=== PATIENT | male | born 1950 | race Caucasian/White ===

== ENCOUNTER 2025-06-12 08:19 | Outpatient (CLI) | payer MEDICARE, SELFPAY ==
[2025-06-12 16:03] LABS: C. difficile PCR (HMH) Negative (Neagtive)
== END 2025-06-12 23:59 | disposition home or self-care (01) ==
PROVIDERS: PCP Family Medicine; Visit Provider Family Medicine
DX: R19.7 Diarrhea, unspecified (principal)
CPT/HCPCS: 87045; 87493

== ENCOUNTER 2025-07-22 20:43 | Inpatient (IN) | payer MEDICARE, SELFPAY ==
[2025-07-22 21:23] VITALS: BP 148/90; PULSE 107; RESP 20; TEMP 40.4; O2SAT 95; BMI 17.3
--- NOTE | 2025-07-22 21:24 | XR_ITS ---
PROCEDURE INFORMATION: Exam: XR Chest Exam date and time: 07/22/2025 8:55 PM Age: 75 years old Clinical indication: Other: AMS TECHNIQUE: Imaging protocol: Radiologic exam of the chest. Views: 1 view. COMPARISON: No relevant prior studies available. FINDINGS: Lungs: Pleuroparenchymal scarring of the lung bases with subsegmental atelectasis is present without consolidations or pleural effusions that project above the diaphragm. Pleural spaces: Unremarkable. No pleural effusion. No pneumothorax. Heart/Mediastinum: Unremarkable. No cardiomegaly. Bones/joints: Unremarkable. IMPRESSION: Pleuroparenchymal scarring of the lung bases with subsegmental atelectasis is present without consolidations or pleural effusions that project above the diaphragm.
[2025-07-22 21:33] LABS: Microscopic, Urine URINE MICROSCOPIC (MICROSCOPIC)
[2025-07-22 21:35] LABS: Hematocrit 32.4 % (42.0-52.0); Hemoglobin 10.6 g/dL (14.1-18.0); Immature Granulocytes % 0.4 %; Mean Corpuscular HGB Conc 32.7 g/dL (31.8-35.4); Mean Corpuscular Hemoglobin 28.0 pg (27.0-31.2); Mean Corpuscular Volume 85.5 fl (80-94); Nucleated Red Blood Cells % 0 %; Platelet Count 298 K/mm3 (142-424); Red Blood Count 3.79 M/mm3 (4.60-6.20); Red Cell Distribution Width-SD 56.6 fL; White Blood Count 10.9 K/mm3 (4.8-10.8)
[2025-07-22 21:37] LABS: Adenovirus,PCR Not Detected (NotDetected); Chlamydophila Pneumoniae, PCR Not Detected (NotDetected); Coronavirus 19, PCR Not Detected (NotDetected); Coronovirus HKU1,PCR Not Detected (NotDetected); Influenza A, PCR Not Detected (NotDetected); Influenza AH1, 2009 Not Detected (NotDetected); Influenza AH1, PCR Not Detected (NotDetected); Influenza AH3,PCR Not Detected (NotDetected); Influenza B, PCR Not Detected (NotDetected); Mycoplasma Pneumoniae, PCR Not Detected (NotDetected); Parainfluenza 1, PCR Not Detected (NotDetected); Parainfluenza 2, PCR Not Detected (NotDetected); Parainfluenza 3, PCR Not Detected (NotDetected); Parainfluenza 4, PCR Not Detected (NotDetected)
--- NOTE | 2025-07-22 21:37 | HMH.EDGENADL ---
Discharge Plan Disposition Patient Disposition: Home, Self-Care Condition: Good Clinical Impressions Clinical Impression: UTI (urinary tract infection), Fever Discharge ED Provider: Lluvia Castaneda General Adult HPI General Chief complaint: Altered Mental Status Stated complaint: AMS Time Seen by Provider: 07/22/25 21:37 Mode of Arrival: EMS Source of Information: Patient and EMS Description of Symptoms (Recalled from ER Triage Doc. by RN): PT brought to ED vis [facility] for evaluation of Fever and AMS. PT stated his called EMS for help to change his dirty depends. History of Present Illness HPI narrative: Patient is a 75-year-old gentleman with a past medical history of CP who is taking care of by his at home who presents to the emergency department with fever and altered mental status. Per EMS, they have been to the home multiple times over this past year patient usually goes to [facility]. EMS states that they did file an APS report given concern for 's ability to take care of him at home. Patient does have frequent UTIs. Other history was unable to be obtained given patient has not been here to this emergency department. Patient denies any complaints. Patient is able to answer questions but is very hard of hearing. Patient denies any chest pain abdominal pain abdominal pain nausea vomiting or diarrhea. Related Data Home Medications ?Medication ?Instructions ?Recorded ?Confirmed ropinirole 2 mg tablet 2 mg PO BID 05/12/25 07/23/25 acetaminophen 500 mg capsule 500 mg PO Q6H PRN Pain 07/15/25 07/23/25 diclofenac sodium 75 mg 75 mg PO BID 07/23/25 07/23/25 tablet,delayed release Allergies Allergy/AdvReac Type Severity Reaction Status Date / Time lactose Allergy Intermediate Verified 07/15/25 11:37 gluten Allergy Mild Verified 07/15/25 11:37 FOR[facility]LY [facility], [facility] PFS Disclaimer: The information contained in this section may have been updated after the patient was seen, as this information can be updated by other users. Medical History Hearing loss Restlessness Idiopathic scoliosis Gastric ulcer Cognitive communication deficit Insomnia Type 2 diabetes mellitus CKD (chronic kidney disease) Abnormal gait Spastic diplegic cerebral palsy Anxiety Depressed Vitamin D deficiency Protein calorie malnutrition Hx: UTI (urinary tract infection) Surgical History History of craniectomy H/O vasectomy History of Billroth II operation H/O lumbosacral spine surgery History of surgical procedure on thoracic spine Family History (Updated 07/23/25 @ 02:02 by Cynthia Hensley APRN) Other Cancer Social History Smoking Status: Never smoker alcohol intake: never current occupational status: disabled Travel in the last 8 weeks?: None Have you lived/traveled outside US in past 30 days?: No Contact w/someone who lives/traveled outside US past 30 days?: No Exposure to someone with infectious disease in past 14 days?: No Do you have a fever (greater than 100.4 F or 38 C)?: No Have you tested positive for COVID-19?: No Exposed to someone with COVID-19 in past 14 days?: No Do you have a sore throat?: No Do you have a cough?: No Do you have any weakness?: No Do you have any diarrhea?: No Are you experiencing any unusual bleeding?: No Do you have any muscle aches/pain?: No Do you have any abdominal pain?: No Are you experiencing loss of taste or smell?: No Other Medical History Have you received the Pneumonia Vaccine: No (unknown) ROS Obtained: Yes All systems reviewed & no additional complaints except as documented and Yes Systems reviewed as appropriate & no additional complaints except as documented Physical Exam General General appearance: alert and in no apparent distress Head Head exam: atraumatic, normocephalic and normal inspection Eye Eye exam: Present normal appearance, PERRL and EOMI; Absent scleral icterus ENT ENT exam: Present normal exam and normal external ear exam Neck Neck exam: Present normal inspection and full ROM Chest Chest inspection: Present normal inspection and symmetric chest wall rise Respiratory Respiratory exam: Present normal lung sounds bilaterally; Absent respiratory distress or wheezes Cardiovascular Cardiovascular exam: Present regular rate, normal rhythm and normal heart sounds Abdominal Exam Abdominal exam: Present soft and distention; Absent tenderness, guarding or rebound Extremities Exam Extremities exam: Present normal inspection and full ROM Back Exam Back exam: Present normal inspection and full ROM Neurological Exam Neurological exam: Present alert and oriented X3 Psychiatric Psychiatric exam: Present normal affect and normal mood Skin Skin exam: Present warm and dry Medical Decision Making Medical Records Medical records reviewed: Yes I reviewed the patient's medical records. Screening: Per USPSTF and CDC recommendations, given the prevalence of disease in our region, it is our hospital?s policy to screen for HIV and viral Hepatitis for all patients aged 18 and over and those with ongoing risk factors. Filipe Inquiry Pt receiving controlled substance: No Vital Signs: 07/22/25 21:23 07/22/25 22:40 07/22/25 23:14 Temperature 104.7 F H 102.7 F H Temperature Source Rectal Rectal Pulse Rate 98 H 103 H Pulse Rate [Left] 107 H Respiratory Rate 20 16 Blood Pressure 135/93 H 122/72 Blood Pressure [Right Arm] 148/90 H Blood Pressure Mean [Right Arm] 109 02 Sat by Pulse Oximetry 95 94 L 95 Oxygen Delivery Method Room Air Room Air Room Air 07/22/25 23:26 Temperature 102.7 F H Temperature Source Rectal Pulse Rate 103 H Pulse Rate [Left] Respiratory Rate 20 Blood Pressure 122/72 Blood Pressure [Right Arm] Blood Pressure Mean [Right Arm] 02 Sat by Pulse Oximetry Oxygen Delivery Method Room Air Lab Data Lab results reviewed: Yes I reviewed the patient's lab results. Lab Results 07/22/25 21:00: Urine Color Yellow, Urine Appearance Turbid, Urine pH 6.5, Ur Specific [place] 1.020, Urine Protein 2+ A, Urine Glucose (UA) Negative, Urine Ketones Negative, Urine Blood 3+ A, Urine Nitrate Negative, Urine Bilirubin Negative, Urine Urobilinogen 0.2, Ur Leukocyte Esterase 3+ A, Urine RBC 10-20, Urine WBC 50-100, Ur Squamous Epith Cells Occasional, Urine Bacteria 1+ 07/22/25 21:22: Chlamy pneumoniae PCR Not detected, Adenovirus (PCR) Not detected, B. pertussis DNA (PCR) Not detected, Coronavirus OC43 (PCR) Not detected, Coronavirus HKU1 (PCR) Not detected, Coronavirus 229E (PCR) Not detected, SARS-CoV-2 (PCR) Not detected, Coronavirus NL63 (PCR) Not detected, Human Metapneumovir PCR Not detected, Influenza A (H1) PCR Not detected, Influ A (H1N1/09) PCR Not detected, Influenza A (H3) PCR Not detected, Influenza Type A (PCR) Not detected, Influenza Type B (PCR) Not detected, M. pneumoniae (PCR) Not detected, Parainfluenza 1 (PCR) Not detected, Parainfluenza 2 (PCR) Not detected, Parainfluenza 3 (PCR) Not detected, Parainfluenza 4 (PCR) Not detected, RSV (PCR) Not detected, Entero/Rhino (PCR) Detected A 07/22/25 21:24: WBC 10.9 H, RBC 3.79 L, Hgb 10.6 L, Hct 32.4 L, MCV 85.5, MCH 28.0, MCHC 32.7, RDW 18.1 H, Plt Count 298, MPV 9.1, Neut % (Auto) 80.9 H, Lymph % (Auto) 7.3 L, [place] % (Auto) 10.3 H, Eos % (Auto) 0.5, Baso % (Auto) 0.6, Neut # (Auto) 8.9 H, Lymph # (Auto) 0.8, [place] # (Auto) 1.1 H, Eos # (Auto) 0.1, Baso # (Auto) 0.1, ESR 76 H, PT 11.4, INR 1.03, APTT 26.6, Sodium 138, Potassium 4.1, Chloride 107, Carbon Dioxide 26, Anion Gap 9.1, BUN 19, Creatinine 1.40 H, Estimated Creat Clear 41, Estimated GFR 50 L, Est GFR ( Amer) 60, Glucose 121 H, Calcium 8.8, Phosphorus 3.5, Magnesium 1.9, Total Bilirubin 0.5, AST 20, ALT 15, Alkaline Phosphatase 140 H, Total Creatine Kinase 60, Troponin I 0.02, C-Reactive Protein 134.0 H, Total Protein 7.5, Albumin 3.3 L, Globulin 4.2 H, Albumin/Globulin Ratio 0.8 L, Lipase 44, HCV Ab VLADIMIR w/Rflx PCR Qn Negative, HIV Ag/Ab Combo Qual Negative 07/22/25 21:24 07/22/25 21:24 Orders (Tests/Meds): ED MEDICATIONS Generic Name Dose Route Start Last Admin Trade Name Freq PRN Reason Stop Dose Admin Acetaminophen 650 mg 07/22/25 22:55 Acetaminophen 325mg Tab PO 08/21/25 22:54 Q4HP PRN Fever or Mild Pain (1-3) Enoxaparin Sodium 40 mg 07/23/25 09:00 Enoxaparin 40mg/0.4ml Syringe SUBCUT 08/22/25 08:59 DAILY YANDEL Piperacillin Sod/Tazobactam 100 mls @ 200 mls/hr 07/22/25 21:45 07/22/25 23:05 Sod 4.5 gm/ Sodium Chloride IV 08/01/25 21:44 Infused Q8H YANDEL Infusion Lactated Ringer's 1,000 mls @ 100 mls/hr 07/22/25 23:00 07/22/25 23:55 Lactated Ringer's 1000 Ml Bag IV 08/21/25 22:59 100 mls/hr .Q10H YANDEL Administration Miscellaneous 1 each 07/22/25 21:45 07/22/25 23:30 Vancomycin Consult Request NOTAPPLIC 08/21/25 21:44 Not Given [facility] Ondansetron HCl 4 mg 07/22/25 22:55 Ondansetron 4mg/2ml Vial IV 08/21/25 22:54 Q8HP PRN Nausea Pantoprazole Sodium 40 mg 07/23/25 21:00 Pantoprazole 40mg Tablet PO 08/22/25 20:59 [facility] Discontinued Medications Generic Name Dose Route Start Last Admin Trade Name Freq PRN Reason Stop Dose Admin Acetaminophen 1,000 mg 07/22/25 21:24 07/22/25 21:55 Acetaminophen 1,000mg/100ml Vial IV 07/22/25 21:25 1,000 mg ONCE ONE Administration Lactated Ringer's 1,000 mls @ 999 mls/hr 07/22/25 21:24 07/22/25 23:38 Lactated Ringer's 1000 Ml Bag IV 07/22/25 22:24 Infused .Q1H1M ONE Infusion Vancomycin/PEG/NADA/Lysine/Water 1.25 gm in 250 mls @ 125 mls/hr 07/22/25 22:00 07/23/25 01:05 Vancomycin 1.25gm/250ml (Peg) Premix IV 07/22/25 23:59 Infused ONCE ONE Infusion ORDERS Category Date Time Status CXR --portable [XR chest portable] Stat Exams 07/22/25 21:24 Taken Activated Partial Thrombo Time Stat Lab 07/22/25 21:24 Completed CBC w/Auto Diff [Complete Blood Count Auto Diff] Stat Lab 07/22/25 21:24 Completed CMP [Comprehensive Metabolic Panel] Stat Lab 07/22/25 21:24 Completed CRP [C-Reactive Protein] Stat Lab 07/22/25 21:24 Completed Complete Blood Count Auto Diff AMLAB Lab 07/23/25 06:00 Ordered Comprehensive Metabolic Panel AMLAB Lab 07/23/25 06:00 Ordered Creatine Kinase Stat Lab 07/22/25 21:24 Completed Erythrocyte Sedimentation Rate Stat Lab 07/22/25 21:24 Completed Full Resp Panel w/COVID ([facility]) Routine Lab 07/22/25 21:22 Completed HIV Combo Stat Lab 07/22/25 21:24 Completed Hepatitis C Ab Qual. W/ RFX Stat Lab 07/22/25 21:24 Completed Lactic Acid Stat Lab 07/22/25 21:26 Completed Lipase Stat Lab 07/22/25 21:24 Completed Magnesium Stat Lab 07/22/25 21:24 Completed Phosphorous Stat Lab 07/22/25 21:24 Completed Prothrombin Time INR Stat Lab 07/22/25 21:24 Completed Trop I [Troponin I] Stat Lab 07/22/25 21:24 Completed Troponin I Q3H Lab 07/23/25 00:50 Completed Troponin I Q3H Lab 07/23/25 03:30 Ordered UA [Urinalysis and Microscopic] Stat Lab 07/22/25 21:00 Completed Blood Culture Stat Micro 07/22/25 21:23 Received Urine Culture Stat Micro 07/22/25 21:00 Received Medical Decision Narrative: Patient is a 75-year-old male with a past medical history of CP, possible dementia versus Parkinson's disease who presented to the emergency department with altered mental status and fever. On arrival, patient was febrile to 104.7. Patient was hemodynamically stable. Patient was saturating appropriately on room air. Differential includes but not limited to: Sepsis, urinary tract infection, pneumonia, electrolyte abnormalities, dehydration, amongst others. Patient's fever, patient's warm blankets were removed, cool cloths were placed in the groin and in the armpits. Was given IV Tylenol. Patient's labs were reviewed and interpreted by myself: CBC showed a mild leukocytosis of 10, hemoglobin stable. CMP unremarkable. INR normal. Creatinine elevated at 1.4 unclear baseline. Lactate normal. Troponin initially elevated at 0.02. CRP elevated at 134. UA grossly infected with 50-100 white blood cells bacteria leuk esterase. Patient's respiratory panel was positive for entero-Rhino. Chest x-ray was obtained which was reviewed and interpreted by myself and showed no focal saltation, pneumothorax, pleural effusion or other acute cardiopulmonary process. Was given IV fluids and given concern for sepsis, patient was treated empirically with vancomycin and Zosyn. Patient was ultimately admitted to the hospital for concern for UTI and sepsis. Critical Care Critical Care Time Critical Care Time: No
[2025-07-22 21:39] LABS: Bacteria,Urine 1+ /lpf; Squamous Epithelial Cell,Urine Occasional #/hpf (0-5); WBC,Urine 50-100 #/hpf (0-3)
[2025-07-22 21:40] LABS: Bilirubin,Urine Negative (Negative); Color,Urine YELLOW (Yellow); Glucose,Urine (UA) Negative (Negative); Ketones,Urine Negative (Negative); Leukocyte Esterase,Urine 3+ (Negative); PH,Urine 6.5 (5.0-8.5); Protein,Urine 2+ (Negative); Specific Gravity, Urine 1.020 (1.005-1.030); Urobilinogen,Urine 0.2 EU/dl (0.2)
--- OUTSIDE RECORDS SUMMARY | 2025-07-22 21:43 | XMS_ITS | Referral Summary ---
Author Organization [email or web address] ([place], [place], [place], [place], [place]) Address [address] [place] [id number] Care Team Providers Care [employer] Supervisor Name Role Phone Unavailable Primary Care Provider Unavailabl e Allergies Active Allergy Reactions Criticality Noted Date Comments Gluten 09/28/2024 Medications No known medications Social History Tobacco Use Types Packs/Day Years Used Date Smoking Tobacco: Never Tobacco Cessation:Counseling Given: Not Answered Alcohol Use Standard Drinks/Week Comments Never 0 (1 standard drink = 0.6 oz pur e alcohol) Sex and Gender Information Value Date Recorded Sex Assigned at Not on file Legal Sex Male 7:16 PM FINANCE E[employer] MA[employer] Gender Identity Not on file Sexual Orientation Not on file Last Filed Vital Signs Vital Sign Reading Time Taken Comments Blood Pressure 117/82 09/28/2024 9:30 PM EST Pulse 80 09/28/2024 8:28 PM EST Temperature 36.6 C (97.9 F) 09/28/2024 8:28 PM EST Respiratory Rate 16 09/28/2024 8:28 PM EST Oxygen Saturation 95% 09/28/2024 8:28 PM EST Inhaled Oxygen Concentration - - Weight 68.9 kg (152 lb) 09/28/2024 8:28 PM EST Height 182.9 cm (6') 09/28/2024 8:28 PM EST Body Mass Index 20.61 09/28/2024 8:28 PM EST Plan of Treatment Not on file [facility] [place] [id number] [facility]
--- OUTSIDE RECORDS SUMMARY | 2025-07-22 21:43 | XMS_ITS | Clinical Summary ---
Author Organization [facility] Address [address] [place] [address] Care Team Providers Care Banking Services Advisor Name Role Phone Unavailable Primary Care Provider Unavailabl e Allergies Active Allergy Reactions Criticality Noted Date Comments Gluten Meal Unknown - High Severity 11/05/2024 Lactose Intolerance (Gi) Unknown - Low Severity 11/05/2024 Medications Sodium Phosphates (PHOSPHATE ENEMA RE) Insert 1 Application into the rectum Daily As Needed. Active bisacodyl (Dulcolax) 10 MG suppository Insert 1 suppository into the rectum 2 (Two) Times a Day As Needed for Constipation. Active ferrous sulfate 325 (65 FE) MG tablet Administer 3 tablets per J tube 3 (Three) Times a Week. , , AND SUNDAY Active Calcium-Vitamin D-Vitamin K 500-200-90 MG-UNT-MCG tablet Administer 1 tablet per J tube Daily. Active senna 8.6 MG tablet Administer 1 tablet per J tube 2 (Two) Times a Day As Needed for Constipation. Active empagliflozin (JARDIANCE) 10 MG tablet tablet Administer 1 tablet per J tube Daily. Active acetaminophen (TYLENOL) 500 MG tablet Administer 1 tablet per J tube Every 6 (Six) Hours As Needed for Mild Pain. Active Menthol-Zinc Oxide 0.44-20.6 % ointment Apply 1 Application topically to the appropriate area as directed 2 (Two) Times a Day. APPLY TO COCCYX. CLEANSE STAGE 2 PRESSURE ULCER TO COCCYX WITH WARM SOAPY WATER PAT DRY, APPLY THICK LAYER OF CALMOSEPTINE AND LEAVE EXTERMINATOR HELPER TERMITE, MAY ALSO APPLY PRN Active nystatin (MYCOSTATIN) 145501 UNIT/GM ointment Apply 1 Application topically to the appropriate area as directed 2 (Two) Times a Day. APPLY TO RIGHT LOWER ABDOMEN TOPICALLY. CLEANSE AREA WITH WARM SOAPY WATER PAT DRY AND APPLY NYSTATIN OINTMENT TO RIGHT LOWER ABDOMEN. Active baclofen (LIORESAL) 10 MG tablet Administer 1 tablet per J tube 3 (Three) Times a Day. Active rOPINIRole (REQUIP) 2 MG tablet Administer 1 tablet per J tube 2 (Two) Times a Day. Active simethicone (MYLICON) 80 MG chewable tablet Administer 1 tablet per J tube Every 6 (Six) Hours As Needed for Flatulence. Active pantoprazole (PROTONIX) 40 MG EC tablet Take 1 tablet by mouth 2 (Two) Times a Day. PER J-TUBE Active Multiple Vitamin (MULTIVITAMINS PO) Administer 1 tablet per J tube Daily. Active escitalopram (LEXAPRO) 20 MG tablet Administer 1 tablet per J tube Daily. Active hydrOXYzine pamoate (VISTARIL) 25 MG capsule Administer 1 capsule per J tube Daily As Needed for Itching. Active Melatonin 3 MG tablet 2 tablets At Night As Needed for Sleep. PER J TUBE Active gabapentin (NEURONTIN) 100 MG capsule Administer 1 capsule per J tube 3 (Three) Times a Day. 90 capsule 3 5 Active midodrine (PROAMATINE) 10 MG tablet Administer 1 tablet per G tube 3 (Three) Times a Day Before Meals. 90 tablet 11/14/2024 1:30 PM EST 5 Active QUEtiapine (SEROquel) 25 MG tablet Take 0.5 tablets by mouth Every 12 (Twelve) Hours for 30 days. 30 tablet 5 Active Active Problems Problem Noted Date Diagnosed Date Hx of gastric ulcer perforation requiring Billro th II 04/06/2025 Dirty living conditions 04/05/2025 Overview (04/05/2025): [employer] [facility] concerns of house covered in trash, feces, patient covered in urine. Severe protein-calorie malnutrition 11/07/2024 Bacterial pneumonia 11/03/2024 Impaired mobility and ADLs 10/13/2024 Physical deconditioning 10/13/2024 Mood disorder 10/13/2024 GERD without esophagitis 10/13/2024 Heart failure with mildly re duced ejection fraction (HFmrEF) 10/13/2024 Spastic diplegic cerebral palsy Resolved Problems Problem Noted Date Diagnosed Date Resolved Date Metabolic encephalopathy 04/05/2025 UTI (urinary tract infection) 11/14/2024 04/08/2025 Encounters Date Type Department Care Team Description 05/08/2025 Telephone [facility] [address] [place] [address] Dereje Pickens, from Last 3 Months Social History Tobacco Use Types Packs/Day Years Used Date Smoking Tobacco: Never Smokeless Tobacco: Never Tobacco Cessation:Counseling Given: No Alcohol Use Standard Drinks/Week Comments Never 0 (1 standard drink = 0.6 oz pur e alcohol) [facility] Utilities Answer Date Recorded In the past 12 months has th e electric, gas, oil, or water company threatened to shut off services in your home? No 11/04/2024 AUDIT-C Answer Date Recorded Q1: How often do you have a drink containing alcohol? Never 04/06/2025 Q2: How many drinks containi ng alcohol do you have on a typical day when you are drinking? Patient does not drink Q3: How often do you have si x or more drinks on one occasion? Never 04/06/2025 Overall Financial Resource Strain (CARDIA) Answe r Date Recorded How hard is it for you to pa y for the very basics like food, housing, medical care, and heating? Not hard at all 11/04/2024 [facility] - Occupational Stress Questionnaire Answer Date Recorded Do you feel stress - tense, restless, nervous, or anxious, or unable to sleep at night because your mind is troubled all the time - these days? Only a little 11/04/2024 Exercise Vital Sign Answer Date Recorde d On average, how many days pe r week do you engage in moderate to strenuous exercise (like a brisk walk)? 5 days 11/04/2024 On average, how many minutes do you engage in exercise at this level? 60 min 11/04/2024 Hunger Vital Sign Answer Date Recorded Within the past 12 months, y ou worried that your food would run out before you got the money to buy more. Never true 11/04/19 Within the past 12 months, t he food you bought just didn't last and you didn't have money to get more. Never true 11/04/2024 PRAPARE - Transportation Answer Date Re corded In the past 12 months, has l ack of transportation kept you from medical appointments or from getting medications? No 10/12 In the past 12 months, has l ack of transportation kept you from meetings, work, or from getting things needed for daily living? No 11/04/2024 Abuse Screen Answer Date Recorded Feels Unsafe at Home or Work/School no 04/06/2025 Feels Threatened by Someone no 03/11 Does Anyone Try to Keep You From Having Contact with Others or Doing Things Outside Your Home? no 04/06/2025 Physical Signs of Abuse Present no 04/06/2025 Housing Stability Answer Date Recorded Current Living Arrangements home 03/11 Potentially Unsafe Housing Conditions none 04/06/2025 Family and Community Support Answer Luis A e Recorded If for any reason you need h elp with day-to-day activities such as bathing, preparing meals, shopping, managing finances, etc., do you get the help you need? I get all the help I need 11/04/2024 How often do you feel lonely or isolated from those around you? Never 11/04/2024 Employment Answer Date Recorded Do you want help finding or keeping work or a job? I do not need or want help 11/04/2024 Disabilities Answer Date Recorded Difficulty Concentrating, Remembering or Making Decisions yes 04/06/2025 Difficulty Managing Errands Independently yes 04/06/2025 Education Answer Date Recorded Do you want help with school or training? For example, starting or completing job training or getting a high school diploma, GED or equivalent No 11/04/2024 Preferred Language Bahamian 11/04/2024 PHQ-2 Answer Date Recorded Patient Health Questionnaire-2 Score 0 11/04/2024 Sex and Gender Information Value Date Recorded Sex Assigned at Not on file Legal Sex Male 4:44 PM EST Gender Identity Not on file Sexual Orientation Not on file Last Filed Vital Signs Vital Sign Reading Time Taken Comments Blood Pressure 125/62 04/08/2025 11:50 AM EDT Pulse 55 04/08/2025 11:50 AM EDT Temperature 36.7 C (98.1 F) 04/08/2025 11:10 AM EDT Respiratory Rate 16 04/08/2025 11:10 AM EDT Oxygen Saturation 94% 04/08/2025 11:10 AM EDT Inhaled Oxygen Concentration - - Weight 58.5 kg (129 lb) 04/06/2025 2:31 PM EDT Height 185.4 cm (6' 1 ) 11/18/2024 10:35 AM EDT Body Mass Index 17.02 11/18/2024 10:35 AM EDT Plan of Treatment Health Maintenance Due Date Last Done Comments DIABETIC EYE EXAM 1962 DIABETIC FOOT EXAM 1962 URINE MICROALBUMIN-CREATININ E RATIO (uACR) 1962 Pneumococcal Vaccine 50+ (1 of 2 - PCV) 1971 TDAP/TD VACCINES (1 - Tdap) 1971 COLOGUARD 1997 COLON CANCER SCREENING 5 YEA [address] SIGMOID[address]COPY 1997 CT COLONOGRAPHY 1997 FECAL OCCULT BLOOD TEST 1997 FIT Testing (1 year) 1997 ZOSTER VACCINE (1 of 2) 2002 COLONOSCOPY 05/23/2020 05/23/2010 COLORECTAL CANCER SCREENING 05/23/2020 COVID-19 Vaccine (2 - Pfizer risk series) 01/10/2021 12/20/2020 ANNUAL WELLNESS VISIT 09/23/2024 INFLUENZA VACCINE 04/10/2025 HEMOGLOBIN A1C 05/03/2025 11/03/2024, 12/0 01/2024, 08/14/2024 HEPATITIS C SCREENING Completed 09/04/2024 Procedures Procedure Name Priority Date/Time Associated Diagnosis Comments HEMOGLOBIN A1C Routine 11/03/2024 6:18 PM EST from Last 3 Months or Most Recently Relevant to Health Maintenance Results * Hemoglobin A1c (11/03/2024 6:18 PM EST) Hemoglobin A1C 5.30 4.80 - 5.60 % 11/04/2024 12:31 AM EST [facility] Blood Venipuncture / Unknown 11/03/2024 6:18 PM EST 11/04/2024 12:19 AM EST Narrative [facility] - 11/04/2024 12:31 AM EST Hemoglobin A1C Ranges: Increased Risk for Diabetes 5.7% to 6.4% Diabetes >= 6.5% Diabetic Goal < 7.0% us Porter Maurice Colemanley DO LAB BLOOD ORDERABLES Marian menjivar Result [facility]
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 11/06/2024 Insurance [employer] O NON PAR Advance Directives * CPR (Attempt to Resuscitate) (Latest Code Status on File) Date Activated Date Inactivated Comments 04/05/2025 4:11 PM 04/08/2025 4:29 PM Question Answer Comments Code Status (Patient has no pulse and is not breathing): CPR (Attempt to Resuscitate) Medical Interventions (Patie nt has pulse or is breathing): Full Support * CPR (Attempt to Resuscitate) Date Activated Date Inactivated Comments 11/18/2024 12:12 PM 11/19/2024 1:15 PM Question Answer Comments Code Status (Patient has no pulse and is not breathing): CPR (Attempt to Resuscitate) Medical Interventions (Patie nt has pulse or is breathing): Full Support Level Of Support Discussed With: Patient * CPR (Attempt to Resuscitate) Date Activated Date Inactivated Comments 11/03/2024 10:56 PM 11/14/2024 10:09 PM Question Answer Comments Code Status (Patient has no pulse and is not breathing): CPR (Attempt to Resuscitate) Medical Interventions (Patie nt has pulse or is breathing): Full Support
--- OUTSIDE RECORDS SUMMARY | 2025-07-22 21:43 | XMS_ITS | Encounter Summary ---
Author Organization [facility] y[facility] Address [address] [place] [id number] Care Team Providers Care Exterminator Helper Termite Name Role Phone [place], Dereje Reyna ESCAMILLA Primary Care Provider [phone] Encounter Details Date Type Department Care Team (Late st Contact Info) Description 11/19/2024 Results Follow-Up [facility] [place] [address] [facility] [address] [place] [address] Erasto Pressley APRN [address] [facility] [address] [place] [address] Social History Tobacco Use Types Packs/Day Years Used Date Smoking Tobacco: Never Smokeless Tobacco: Never Alcohol Use Standard Drinks/Week Comments Never 0 (1 standard drink = 0.6 oz pur e alcohol) [facility] Utilities Answer Date Recorded In the past 12 months has [employer], gas, oil, or water [employer] threatened to shut off services in your home? No 11/04/2024 AUDIT-C Answer Date Recorded Q1: How often do you have a drink containing alcohol? Never 11/04/2024 Q2: How many drinks containi ng alcohol do you have on a typical day when you are drinking? Patient does not drink Q3: How often do you have si x or more drinks on one occasion? Never 11/04/2024 Overall Financial Resource Strain (CARDIA) Answe r Date Recorded How hard is it for you to pa y for the very basics like food, housing, medical care, and heating? Not hard at all 11/04/2024 [facility] [place] of Occupat ional Health - Occupational Stress [...] Feels Unsafe at Home or Work/School no 11/18/2024 Feels Threatened by Someone no 11/08 Does Anyone Try to Keep You From Having Contact with Others or Doing Things Outside Your Home? no 11/18/2024 Physical Signs of Abuse Present no 11/18/2024 Housing Stability Answer Date Recorded Current Living Arrangements extended care facili ty 11/04/2024 Potentially Unsafe Housing Conditions none 11/04/2024 Family and Community Support Answer Luis A [...] Difficulty Concentrating, Remembering or Making Decisions yes 11/04/2024 Difficulty Managing Errands Independently yes 11/04/2024 Education Answer Date Recorded Do you want help with school or training? For example, starting or completing job training or getting a high school diploma, GED or equivalent No 11/04/2024 Preferred Language Kenyan 11/04/2024 PHQ-2 Answer Date Recorded Patient Health Questionnaire-2 Score 0 11/04/2024 Sex and Gender Information Value Date Recorded Sex Assigned at Not on file Legal Sex Male 4:44 PM EST Gender Identity Not on file Sexual Orientation Not on file documented as of this encounter Plan of Treatment Not on file documented as of this encounter Visit Diagnoses Not on filedocumented in this encounter Additional Health Concerns Infection Onset Date Last Indicated Resolved Time 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
--- OUTSIDE RECORDS SUMMARY | 2025-07-22 21:43 | XMS_ITS | Clinical Summary ---
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 Gender Identity Not on file Sexual Orientation [...] 09/28/2024 8:28 PM EST Plan of Treatment Health Maintenance Due Date Last Done Comments CT Colonography 1952 Colonoscopy 1952 Colorectal Cancer Screening 1952 FOBT/FIT 1952 Fit-DNA (Cologuard) 1952 Sigmoidoscopy 1952 Depression Screening (12+) 1964 Tobacco Cessation Counseling and Screening (12+) 03/30 Hepatitis C Screening 1970 DTAP/TDAP/TD VACCINES (1 - Tdap) 1971 Pneumococcal 50+ years (1 of 1 - PCV) 2002 Shingles Vaccine (Zoster) (1 of 2) 2002 Falls Risk Screening 09/10/2024 Medicare IPPE (Welcome to Medicare) [id number] 09/10/2024 COVID-19 VACCINE (2 - 2024- season) 05/11/202508/2021 Influenza Vaccine (#1) 2025 Respiratory Syncytial Virus (RSV) Adult or (1 - 1-dose 75+ series) 2027 Insurance [facility]
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
--- OUTSIDE RECORDS SUMMARY | 2025-07-22 21:43 | XMS_ITS | Encounter Summary ---
[facility] [address] [place] [id number] Care Team Providers Care S[employer] Tree Stitcher Name Role Phone Dereje Picknes DO Primary Care Provider [phone] Encounter Details Date Type Department Care Team (Late st Contact Info) Description 05/08/2025 Telephone [facility] [address] [place] [address] Dereje Pickens DO [address] [place] [address] Social History Tobacco Use Types Packs/Day Years Used Date Smoking Tobacco: Never Smokeless Tobacco: Never Alcohol Use Standard Drinks/Week Comments Never 0 (1 standard drink = 0.6 oz pur e alcohol) [facility] Utilities Answer Date Recorded In the past 12 months has [employer] electric, gas, oil, or water [employer] threatened to shut off services in your [...] and heating? Not hard at all 11/04/2024 [facility] of Occupat ional Health - Occupational Stress [...] money to buy more. Never true 11/04/19 25 Within the past 12 months, t [...] GED or equivalent No 11/04/2024 Preferred Language Bruneian 11/04/2024 PHQ-2 Answer Date Recorded Patient Health Questionnaire-2 Score 0 11/04/2024 Sex and Gender Information Value Date Recorded Sex Assigned at Not on file Legal Sex Male 4:44 PM EST Gender Identity Not on file Sexual Orientation Not on file documented as of this encounter Miscellaneous Notes * Telephone Encounter - Bartolo Carter RegSched Rep - 05/08/2025 2:42 PM EDT Hub staff attempted to follow warm transfer process and was unsuccessful Caller: YOANA ZAPATA Relationship to patient: HOME HEALTH Best call back number: [phone] Patient is needing: YOANA CALLED TO ADVISE THAT PATIENT IS A NON-ADMIT FOR HOME HEALTH, HE IS GOING [facility] AND IS NOT SAFE AT HOME documented in this encounter Plan of Treatment Not on file documented as of this encounter Visit Diagnoses Not on filedocumented in this encounter Additional Health Concerns Infection Onset Date Last Indicated Resolved Time 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
[2025-07-22 21:53] LABS: Activated Partial Thrombo Time 26.6 seconds (22.8-30.6); INR 1.03 (0.9-1.1); Prothrombin Time 11.4 seconds (10.1-12.5)
[2025-07-22] MEDS: ACETAMINOPHEN 1,000MG/100ML VIAL 1000 MG IV (21:55)
[2025-07-22 21:57] LABS: Alanine Aminotransferase 15 U/L (12-78); Albumin Level 3.3 g/dl (3.5-5.0); Albumin/Globulin Ratio 0.8 (1.1-1.8); Alkaline Phosphatase 140 U/L (38-126); Anion Gap 9.1 mEq/L (5-15); Aspartate Amino Transferase 20 U/L (17-59); Bilirubin,Total 0.5 mg/dl (0.2-1.3); Calcium 8.8 mg/dl (8.4-10.2); Carbon Dioxide 26 mmol/L (22.0-30.0); Chloride 107 mmol/L (98-107); Creatine Kinase 60 U/L (55-170); Globulin 4.2 g/dL (1.3-3.2); Glucose 121 mg/dl (74-100); Lipase 44 U/L (23-300); Magnesium 1.9 mg/dl (1.6-2.3); Phosphorous 3.5 mg/dl (2.5-4.5); Potassium 4.1 mmoL/L (3.5-5.1); Sodium 138 mmol/L (136-145); Total Protein,Serum 7.5 g/dl (6.3-8.2)
[2025-07-22 22:01] LABS: Blood Urea Nitrogen 19 mg/dl (9-20)
[2025-07-22 22:02] LABS: Creatinine Clearance Estimated 41 mL/min (50-200); Creatinine,Serum 1.40 mg/dl (0.66-1.25); Estimated Glomerular Filt Rate 50 ml/min (>60); GFR (African American) 60 ML/MIN (>60)
[2025-07-22 22:03] LABS: C-Reactive Protein 134.0 mg/L (0-4)
[2025-07-22 22:11] LABS: Troponin I 0.02 ng/ml (0.00-0.034)
[2025-07-22] MEDS: PIPERACILLIN/TAZO 4.5 GM in 0.9 % SODIUM CHLORIDE 100 ML IV (22:35)
[2025-07-22] MEDS: LACTATED RINGERS 1000ML 1,000 ML 999 ML IV (22:37)
[2025-07-22 22:40] VITALS: BP 135/93; PULSE 98; RESP 16; O2SAT 94
[2025-07-22 22:45] LABS: Hepatitis C Ab Qual. W/ RFX NEGATIVE (Negative)
[2025-07-22] MEDS: VANCOMYCIN/WATER FOR INJ (PEG) 1.25 GM/250 ML PIGGYBACK IV (23:05)
[2025-07-22 23:14] VITALS: BP 122/72; PULSE 103; TEMP 39.3; O2SAT 95
[2025-07-22 23:26] VITALS: BP 122/72; PULSE 103; RESP 20; TEMP 39.3; O2SAT 95
--- NOTE | 2025-07-22 23:26 | PC.NURSE ---
Report called to CHAPARRITA Browne on [facility]
--- NOTE | 2025-07-22 23:53 | PC.NURSE ---
Patient arrived to floor via stretcher from ED at 23:50.
[2025-07-22] MEDS: LACTATED RINGERS 1000ML 1,000 ML 100 ML IV (23:55)
[2025-07-23] VITALS (8 sets, daily range): BP systolic 115–153; BP diastolic 63–77; PULSE 66–94; RESP 14–18; TEMP 36.3–37.7; O2SAT 92–97; BMI 19.5
--- NOTE | 2025-07-23 00:40 | PC.NURSE ---
patient reports during admission questions that he was living in [place] a week prior and was kicked out r/t insurance issues and is now living at home with his - states his has difficulty taking care of things and him.
--- NOTE | 2025-07-23 01:20 | PC.NURSE ---
Home medication reconciliation was completed to the best of my ability by utilizing the patient's external medication history. Patient was able to recall only a few medications, but he stated that he could not remember the rest. Patient is alert and oriented; however, he did state upon assessment that he does not know where he is at, but he could state that he came from [place]. He currently lives in [place] with his . He additionally reported that he was kicked out of [place] due to insurance issues. However, no further episodes of confusion were noticed at this time. Patient is also very hard of hearing and does not have any hearing aids. Communication was achieved best through utilization of a white board and writing on it.
[2025-07-23 01:23] LABS: Troponin I 0.02 ng/ml (0.00-0.034)
--- NOTE | 2025-07-23 01:57 | P.HP_ITS ---
<Statement entered by Bro Torrez MD - 07/23/25 13:12> Rounded on patient after nurse practitioner. Personally examined and interviewed patient. Agree with exam findings and care plan as documented. History of Present Illness *Admission Date: 07/22/25 *Reason for visit:: Altered mental status *History of present illness: 75-year-old male patient presents to ER from home where he lives with his . Reportedly had altered mental status. He has history of cerebral palsy and his does care for him at home. Also history of dementia as well as Parkinson's. ER reports no focal deficits and he was alert and oriented there he is very hard of hearing and has difficulty answering because of that. He was found to have a bladder infection with urinalysis showing 2+ protein, 3+ blood and 3+ leukocyte esterase with 50-100 white cells. Has history of incontinence as well as multiple bladder infections. We have no cultures on record here. He was given Zosyn and vancomycin in the ER as well as some IV fluids. [facility] Disclaimer: The information contained in this section may have been updated after the patient was seen, as this information can be updated by other users. Medical History Hearing loss Restlessness Idiopathic scoliosis Gastric ulcer Cognitive communication deficit Insomnia Type 2 diabetes mellitus CKD (chronic kidney disease) Abnormal gait Spastic diplegic cerebral palsy Anxiety Depressed Vitamin D deficiency Protein calorie malnutrition Hx: UTI (urinary tract infection) Surgical History History of craniectomy H/O vasectomy History of Billroth II operation H/O lumbosacral spine surgery History of surgical procedure on thoracic spine Family History (Updated 07/23/25 @ 02:02 by Cynthia Hensley APRN) Other Cancer Social History Smoking Status: Never smoker alcohol intake: never current occupational status: disabled Travel in the last 8 weeks?: None Have you lived/traveled outside US in past 30 days?: No Contact w/someone who lives/traveled outside US past 30 days?: No Exposure to someone with infectious disease in past 14 days?: No Do you have a fever (greater than 100.4 F or 38 C)?: No Have you tested positive for COVID-19?: No Exposed to someone with COVID-19 in past 14 days?: No Do you have a sore throat?: No Do you have a cough?: No Do you have any weakness?: No Do you have any diarrhea?: No Are you experiencing any unusual bleeding?: No Do you have any muscle aches/pain?: No Do you have any abdominal pain?: No Are you experiencing loss of taste or smell?: No Other Medical History Have you received the Flu Vaccine for this season: No Have you received the Pneumonia Vaccine: No Review of Systems Constitutional Constitutional: Reports system reviewed and no additional complaints, except as documented Eyes Eyes: Reports system reviewed and no additional complaints, except as documented ENT Ears, Nose, Mouth, and Throat: Reports system reviewed and no additional complaints, except as documented and Reports abnormal hearing *Cardiovascular Cardiovascular: Denies chest pain and Denies dyspnea *Respiratory Respiratory: Denies cough and Denies dyspnea *Gastrointestinal Gastrointestinal: Denies abdominal pain, Denies loose stools and Denies vomiting *Genitourinary Genitourinary: Denies dysuria and Reports urinary incontinence *Musculoskeletal Musculoskeletal: Reports system reviewed and no additional complaints, except as documented *Neurologic Neurologic: Reports abnormal hearing Meds Home Medications and Allergies Home Medications ?Medication ?Instructions ?Recorded ?Confirmed ?Type ropinirole 2 mg tablet 2 mg PO BID 05/12/25 5 History acetaminophen 500 mg capsule 500 mg PO Q6H PRN Pain 07/23/25 History diclofenac sodium 75 mg 75 mg PO BID 07/23/25 History tablet,delayed release New Prescriptions to Start Prescriptions: Allergies Allergy/AdvReac Type Severity Reaction Status Date / Time lactose Allergy Intermediate Verified 07/15/25 11:37 gluten Allergy Mild Verified 07/15/25 11:37 Exam Data for Last 24 hours Vital signs and Labs for Last 24 Hours: Temp Pulse Resp BP Pulse Ox O2 Del Method 98.7 F 84 16 119/77 95 Room Air 07/23/25 00:00 07/23/25 00:00 07/23/25 00:00 07/23/25 00:00 07/23/25 00:00 07/23/25 01:00 Laboratory Results - last 24 hr 07/22/25 21:00: Urine Color Yellow, Urine Appearance Turbid, Urine pH 6.5, Ur Specific [place] 1.020, Urine Protein 2+ A, Urine Glucose (UA) Negative, Urine Ketones Negative, Urine Blood 3+ A, Urine Nitrate Negative, Urine Bilirubin Negative, Urine Urobilinogen 0.2, Ur Leukocyte Esterase 3+ A, Urine RBC 10-20, Urine WBC 50-100, Ur Squamous Epith Cells Occasional, Urine Bacteria 1+ 07/22/25 21:22: Chlamy pneumoniae PCR Not detected, Adenovirus (PCR) Not detected, B. pertussis DNA (PCR) Not detected, Coronavirus OC43 (PCR) Not detected, Coronavirus HKU1 (PCR) Not detected, Coronavirus 229E (PCR) Not detected, SARS-CoV-2 (PCR) Not detected, Coronavirus NL63 (PCR) Not detected, Human Metapneumovir PCR Not detected, Influenza A (H1) PCR Not detected, Influ A (H1N1/09) PCR Not detected, Influenza A (H3) PCR Not detected, Influenza Type A (PCR) Not detected, Influenza Type B (PCR) Not detected, M. pneumoniae (PCR) Not detected, Parainfluenza 1 (PCR) Not detected, Parainfluenza 2 (PCR) Not detected, Parainfluenza 3 (PCR) Not detected, Parainfluenza 4 (PCR) Not detected, RSV (PCR) Not detected, Entero/Rhino (PCR) Detected A 07/22/25 21:24: WBC 10.9 H, RBC 3.79 L, Hgb 10.6 L, Hct 32.4 L, MCV 85.5, MCH 28.0, MCHC 32.7, RDW 18.1 H, Plt Count 298, MPV 9.1, Neut % (Auto) 80.9 H, Lymph % (Auto) 7.3 L, [place] % (Auto) 10.3 H, Eos % (Auto) 0.5, Baso % (Auto) 0.6, Neut # (Auto) 8.9 H, Lymph # (Auto) 0.8, [place] # (Auto) 1.1 H, Eos # (Auto) 0.1, Baso # (Auto) 0.1, ESR 76 H, PT 11.4, INR 1.03, APTT 26.6, Sodium 138, Potassium 4.1, Chloride 107, Carbon Dioxide 26, Anion Gap 9.1, BUN 19, Creatinine 1.40 H, Estimated Creat Clear 41, Estimated GFR 50 L, Est GFR ( Amer) 60, Glucose 121 H, Calcium 8.8, Phosphorus 3.5, Magnesium 1.9, Total Bilirubin 0.5, AST 20, ALT 15, Alkaline Phosphatase 140 H, Total Creatine Kinase 60, Troponin I 0.02, C-Reactive Protein 134.0 H, Total Protein 7.5, Albumin 3.3 L, Globulin 4.2 H, Albumin/Globulin Ratio 0.8 L, Lipase 44, HCV Ab VLADIMIR w/Rflx PCR Qn Negative, HIV Ag/Ab Combo Qual Negative 07/23/25 00:50: Lactate 0.7, Troponin I 0.02 I & O for Last 24 hours: Intake & Output 07/20/25 07/21/25 07/22/25 07/23/25 23:59 23:59 23:59 23:59 Intake Total 1100 / 1277 427 / 427 Balance 1100 / 1277 427 / 427 Weight 61.235 kg 58.287 kg Constitutional Constitutional: no acute distress *Routine HEENT Exam Head: Present normocephalic and atraumatic Eye: Present PERRL ENT: Present mucous membranes moist and other ([place]) *Routine Neck Exam Neck: Present supple; Absent lymphadenopathy *Routine Respiratory Exam Respiratory: Present CTA bilaterally *Routine Cardiovascular Exam Cardiovascular: Present RRR, Normal S1 and Normal S2 *Routine Abdominal Exam Abdominal: Present soft and normoactive bowel sounds; Absent tenderness *Routine Rectal Exam Rectal:: deferred *Routine Genitalia Exam Genitalia:: deferred *Routine Extremities Exam Extremities: Present pulses intact; Absent edema *Routine Skin Exam Skin: Present dry and warm *Routine Neurological Exam Neurological: Present alert, oriented X3 and moving all extremities Comments: Some contractures of the left side from cerebral palsy, strength is normal in the right upper extremity and slightly diminished in the left where the contractures are, both lower extremities are strong Assessment and Plan *Assessment and plan (1) UTI (urinary tract infection): Status: Acute Qualifiers: Urinary tract infection type: acute cystitis Hematuria presence: without hematuria Qualified Code(s): N30.00 - Acute cystitis without hematuria Category: Medical Code(s): N39.0 - Urinary tract infection, site not specified (2) CKD (chronic kidney disease): Status: Acute Category: Medical Code(s): N18.9 - Chronic kidney disease, unspecified (3) Spastic diplegic cerebral palsy: Status: Acute Category: Medical Code(s): G80.1 - Spastic diplegic cerebral palsy (4) Anxiety: Status: Acute Category: Medical Code(s): F41.9 - Anxiety disorder, unspecified (5) Depressed: Status: Acute Qualifiers: Depression Type: unspecified Qualified Code(s): F32.A - Depression, unspecified Category: Medical Code(s): F32.A - Depression, unspecified Plan Patient was brought to the ER via EMS with altered mental status. Was found to have a UTI with history of recurrent UTIs. After discussion with the ER physician agreed to admit for IV antibiotics and further treatment. Culture is pending. We do not have previous cultures for this patient. Currently he is alert and oriented. He is very hard of hearing and does best with written questions. Will continue IV antibiotics and IV fluids. Repeat labs in the morning. May need to consider some sort of placement for him as he is at home with his and she is having difficulty taking care of him. snf records show history of diabetes mellitus as well as CKD. Current BUN is 19 and creatinine 1.4. I do not have labs to compare to. I do not see that he is on any diabetic medications and his blood sugar is 121. Will continue to monitor.
[2025-07-23 04:12] LABS: Troponin I 0.02 ng/ml (0.00-0.034)
[2025-07-23] MEDS: PIPERACILLIN/TAZO 4.5 GM in 0.9 % SODIUM CHLORIDE 100 ML IV ×3 (05:30→21:12)
[2025-07-23 07:14] LABS: Hematocrit 31.2 % (42.0-52.0); Hemoglobin 10.1 g/dL (14.1-18.0); Immature Granulocytes % 0.4 %; Mean Corpuscular HGB Conc 32.4 g/dL (31.8-35.4); Mean Corpuscular Hemoglobin 28.6 pg (27.0-31.2); Mean Corpuscular Volume 88.4 fl (80-94); Nucleated Red Blood Cells % 0 %; Platelet Count 236 K/mm3 (142-424); Red Blood Count 3.53 M/mm3 (4.60-6.20); Red Cell Distribution Width-SD 58.9 fL; White Blood Count 9.3 K/mm3 (4.8-10.8)
[2025-07-23 07:33] LABS: Alanine Aminotransferase 14 U/L (12-78); Albumin Level 2.8 g/dl (3.5-5.0); Albumin/Globulin Ratio 0.8 (1.1-1.8); Alkaline Phosphatase 115 U/L (38-126); Anion Gap 7.6 mEq/L (5-15); Aspartate Amino Transferase 20 U/L (17-59); Bilirubin,Total 0.6 mg/dl (0.2-1.3); Blood Urea Nitrogen 20 mg/dl (9-20); Calcium 8.2 mg/dl (8.4-10.2); Carbon Dioxide 25 mmol/L (22.0-30.0); Chloride 110 mmol/L (98-107); Creatinine Clearance Estimated 42 mL/min (50-200); Creatinine,Serum 1.30 mg/dl (0.66-1.25); Estimated Glomerular Filt Rate 54 ml/min (>60); GFR (African American) 65 ML/MIN (>60); Globulin 3.5 g/dL (1.3-3.2); Glucose 105 mg/dl (74-100); Potassium 3.6 mmoL/L (3.5-5.1); Sodium 139 mmol/L (136-145); Total Protein,Serum 6.3 g/dl (6.3-8.2)
--- NOTE | 2025-07-23 07:33 | HMH.PHAINT1 ---
Pharmacy Intervention Comments: MEDICATION RECONCILIATION COMPLETED ON PATIENT USING EXTERNAL FILL HISTORY FROM PHARMACY AND LIST FROM PCP. -ANNE-MARIE KIM, RENETTAD
--- NOTE | 2025-07-23 07:45 | P.CONPHA_ITS ---
Pharmacy Consult Date: 07/23/25 Time: 07:45 Referring provider: DR. SOTO Reason for Consult:: VANCOMYCIN DOSING Allergies Allergy/AdvReac Type Severity Reaction Status Date / Time lactose Allergy Intermediate Verified 07/15/25 11:37 gluten Allergy Mild Verified 07/15/25 11:37 Home Medications ?Medication ?Instructions ?Recorded ?Confirmed ?Type ropinirole 2 mg tablet 2 mg PO BID 05/12/25 5 History acetaminophen 500 mg capsule 500 mg PO Q8HP PRN Mild P ain 07/15/25 07/23/25 History (Scale Score 1-4) New Prescriptions to Start Prescriptions: Height: 1.73 m Weight: 58.332 kg Laboratory Results:: Laboratory Results - last 24 hr 07/22/25 21:00: Urine Color Yellow, Urine Appearance Turbid, Urine pH 6.5, Ur Specific [place] 1.020, Urine Protein 2+ A, Urine Glucose (UA) Negative, Urine Ketones Negative, Urine Blood 3+ A, Urine Nitrate Negative, Urine Bilirubin Negative, Urine Urobilinogen 0.2, Ur Leukocyte Esterase 3+ A, Urine RBC 10-20, Urine WBC 50-100, Ur Squamous Epith Cells Occasional, Urine Bacteria 1+ 07/22/25 21:22: Chlamy pneumoniae PCR Not detected, Adenovirus (PCR) Not detected, B. pertussis DNA (PCR) Not detected, Coronavirus OC43 (PCR) Not detected, Coronavirus HKU1 (PCR) Not detected, Coronavirus 229E (PCR) Not detected, SARS-CoV-2 (PCR) Not detected, Coronavirus NL63 (PCR) Not detected, Human Metapneumovir PCR Not detected, Influenza A (H1) PCR Not detected, Influ A (H1N1/09) PCR Not detected, Influenza A (H3) PCR Not detected, Influenza Type A (PCR) Not detected, Influenza Type B (PCR) Not detected, M. pneumoniae (PCR) Not detected, Parainfluenza 1 (PCR) Not detected, Parainfluenza 2 (PCR) Not detected, Parainfluenza 3 (PCR) Not detected, Parainfluenza 4 (PCR) Not detected, RSV (PCR) Not detected, Entero/Rhino (PCR) Detected A 07/22/25 21:24: WBC 10.9 H, RBC 3.79 L, Hgb 10.6 L, Hct 32.4 L, MCV 85.5, MCH 28.0, MCHC 32.7, RDW 18.1 H, Plt Count 298, MPV 9.1, Neut % (Auto) 80.9 H, Lymph % (Auto) 7.3 L, [place] % (Auto) 10.3 H, Eos % (Auto) 0.5, Baso % (Auto) 0.6, Neut # (Auto) 8.9 H, Lymph # (Auto) 0.8, [place] # (Auto) 1.1 H, Eos # (Auto) 0.1, Baso # (Auto) 0.1, ESR 76 H, PT 11.4, INR 1.03, APTT 26.6, Sodium 138, Potassium 4.1, Chloride 107, Carbon Dioxide 26, Anion Gap 9.1, BUN 19, Creatinine 1.40 H, Estimated Creat Clear 41, Estimated GFR 50 L, Est GFR ( Amer) 60, Glucose 121 H, Calcium 8.8, Phosphorus 3.5, Magnesium 1.9, Total Bilirubin 0.5, AST 20, ALT 15, Alkaline Phosphatase 140 H, Total Creatine Kinase 60, Troponin I 0.02, C-Reactive Protein 134.0 H, Total Protein 7.5, Albumin 3.3 L, Globulin 4.2 H, Albumin/Globulin Ratio 0.8 L, Lipase 44, HCV Ab VLADIMIR w/Rflx PCR Qn Negative, HIV Ag/Ab Combo Qual Negative 07/23/25 00:50: Lactate 0.7, Troponin I 0.02 07/23/25 03:45: Troponin I 0.02 07/23/25 05:48: WBC 9.3, RBC 3.53 L, Hgb 10.1 L, Hct 31.2 L, MCV 88.4, MCH 28.6, MCHC 32.4, RDW 18.0 H, Plt Count 236, MPV 9.0, Neut % (Auto) 74.5, Lymph % (Auto) 11.5, [place] % (Auto) 12.1 H, Eos % (Auto) 0.6, Baso % (Auto) 0.9, Neut # (Auto) 6.9, Lymph # (Auto) 1.1, [place] # (Auto) 1.1 H, Eos # (Auto) 0.1, Baso # (Auto) 0.1, Sodium 139, Potassium 3.6, Chloride 110 H, Carbon Dioxide 25, Anion Gap 7.6, BUN 20, Creatinine 1.30 H, Estimated Creat Clear 42, Estimated GFR 54 L , Est GFR ( Amer) 65, Glucose 105 H, Calcium 8.2 L, Total Bilirubin 0.6, AST 20, ALT 14, Alkaline Phosphatase 115, Total Protein 6.3, Albumin 2.8 L D, Globulin 3.5 H, Albumin/Globulin Ratio 0.8 L Medical History: Medical History (Updated 07/23/25 @ 02:10 by Cynthia Hensley APRN) Hearing loss Restlessness Idiopathic scoliosis Gastric ulcer Cognitive communication deficit Insomnia Type 2 diabetes mellitus CKD (chronic kidney disease) Abnormal gait Spastic diplegic cerebral palsy Anxiety Depressed Vitamin D deficiency Protein calorie malnutrition Hx: UTI (urinary tract infection) Assessment and Plan Assessment and plan all Dx Assessment and Plan for all problems:: Pharmacokinetic dosing service Objective: Patient: Floor: Age: 75 yo Serum creatinine: 1.40 mg/dL Height: 68.1 Inches Weight (kg): 58.3 Assessment: IBW (kg): 68.63 Dosing wt(kg): 58.3 Estimated Creatinine clearance (ml/min): 38.8 CRCL method: Cockcroft and Gault using ibw(default). Drug selected: Vancomycin Loading dose (mg): Vd (liters): 46.6 (factor used: 0.8 L/kg) Allen (hr-1): 0.037 Half life (hrs): 18.73 CLvanco=?? 1.724 L/hr Recommended dose: 1000 mg Interval: 24 hrs Infusion time (hrs): 2.0 Predicted peak (mcg/mL): 35.1 Predicted trough (mcg/mL): 15.55 Total body weight is being used for vancomycin dosing. Recommendations: Give Vancomycin 1000 mg q 24 hrs with an expected Cpeak of 35.1 mcg/ml and an expected Ctrough of 15.55 mcg/ml AUC 0-24 /GIBSON Data: GIBSON 0.5 mcg/mL:?? AUC/GIBSON:? 1160.1 GIBSON 1.0 mcg/mL:?? AUC/GIBSON:? 580.0 --------- GIBSON 1.5 mcg/mL:?? AUC/GIBSON:? 386.7 GIBSON 2.0 mcg/mL:?? AUC/GIBSON:? 290.0 Thank you for the consult, will continue to follow. -ANNE-MARIE KIM, RENETTAD
--- NOTE | 2025-07-23 09:20 | HMH.PTEV ---
Physical Therapy Evaluation Rehab PT IP Evaluation Start: 07/23/25 02:44 Freq: ONCE Status: Active Protocol: Document 07/23/25 09:15 NIKHIL (Rec: 07/23/25 09:20 NIKHIL [id number]) Subjective/History History History Per H&P: 75-year-old male patient presents to ER from home where he lives with his . Reportedly had altered mental status. He has history of cerebral palsy and his does care for him at home. Also history of dementia as well as Parkinson's. ER reports no focal deficits and he was alert and oriented there he is very hard of hearing and has difficulty answering because of that. He was found to have a bladder infection with urinalysis showing 2+ protein, 3+ blood and 3+ leukocyte esterase with 50-100 white cells. Has history of incontinence as well as multiple bladder infections. We have no cultures on record here. He was given Zosyn and vancomycin in the ER as well as some IV fluids. Subjective Subjective Pt is KLETSEL DEHE WINT[place]. Communication performed via white board. Pt lives with his in a home with 1 LY. Pt normally uses a w/c for all mobility and needs assistance for transfers. [facility] How much help from another person do you currently need... Turning from your A little back to your side while in a flat bed without using bedrails? Moving from lying on A little back to sitting on the side of a flat bed without using bedrails? Moving to and from a A lot bed to a chair ( including a wheelchair)? Standing up from a A lot chair using your arms? (e.g., wheelchair, bedside chair) Walking in hospital Total room? Climbing 3-5 steps Total with a railing? Mobility Score 12 Mobility Level [facility] Mobility 4 Move to chair/commode Mobility Calculator Rehab PT IP Eval Objective Appearance Patient Behavior Appropriate,Cooperative Patient Orientation Person,Place Difficulty following none instructions Speech Pattern Clear Ambulation Patient Able to No Ambulate Balance Ability to Arise Able, uses arms to help Sitting Balance Leans or slides in chair Standing Balance Unsteady Transfers Bed Transfer Ability Moderate x 2 (50% assist) Sit to Stand Bed Moderate x 2 (50% assist) Transfer Ability Rehab PT IP prob,goals,plan Problems Date of Evaluation: 07/23/25 PT IP Problems Bed Mobility,Transfers,Gait,Balance,Self care,Safety Rehab Potential Rehab Potential Good Plan PT Intervention Plan Bed Mobility,Transfers,Gait,Balance,Self care,Safety, Therapeutic Exercise Other Intervention 1-2 times Plan PT Plan Frequency Daily Duration LOS Discharge Goals Bed Transfer Ability Moderate x 1 (50% assist) Sit to Stand Chair Moderate x 1 (50% assist) Transfer Ability Discharge Plan PT Discharge Plan Initial physical therapy evaluation performed. Patient presents below baseline at this time in functional mobility, transfers, and strength. PT recommending inpatient rehabilitation placement or / assistance at home with PT upon d/c from [facility]. Pt would benefit from skilled PT while at [facility] to prevent further functional decline and maximize safety with mobility. Eval Complexity Eval Charge Codes 89908 - Moderate Complexity PHYSICIAN CERTIFICATION: I certify the specified therapy services for Danis Urbina are required, authorized, and reviewed every 30 days.
--- NOTE | 2025-07-23 09:29 | HMH.OTEV ---
OT Evaluation Rehab OT IP Evaluation Start: 07/23/25 08:03 Freq: ONCE Status: Active Protocol: Document 07/23/25 09:21 HELGA (Rec: 07/23/25 09:29 HELGA [id number]) Rehab OT IP Assessment Subjective History Per HPI: 75-year-old male patient presents to ER from home where he lives with his . Reportedly had altered mental status. He has history of cerebral palsy and his does care for him at home. Also history of dementia as well as Parkinson's. ER reports no focal deficits and he was alert and oriented there he is very hard of hearing and has difficulty answering because of that. He was found to have a bladder infection with urinalysis showing 2+ protein, 3+ blood and 3+ leukocyte esterase with 50-100 white cells. Has history of incontinence as well as multiple bladder infections. We have no cultures on record here. He was given Zosyn and vancomycin in the ER as well as some IV fluids. Subjective I can't hear without my hearing aides. Pt supine in bed when therapy entered room. Pt orient x3 and agreed to initial OT eval this AM. Pt reported to therapy they were hard of hearing and therapy used a dry erase board and marker for pt to read and relay information to therapy. Pt reported they live with and dog in SS home with one step to enter. pt reported they were at [place] for a period of time for therapy and just recently been home. Pt reported they did not like their stay and will not go back to [place]. Pt reported they use a w/c for FM and need assistance to transfer to and from w/c as well as assistance in completion of ADLs and IADLs. Pt agreed to FM task. Pt went from supine to EOB Min A x1. Pt then completed STS with Mod A x1. Pt able to tolerate static standing balance task with Min A. Pt then sat back on EOB and went to supine position with Min A. Pt left supine in bed with call light and all other needs within reach and nursing present. Objective Patient Orientation Person,Place,Situation Right Upper Mod Limitation 50% Extremity Gross ROM Left Upper Extremity Mod Limitation 50% Gross ROM Shoulder ROM Muscle Weakness Limitations Elbow ROM Muscle Weakness Limitations Wrist Limitations of Contracture,Muscle Weakness Range of Motion Bed Mobility bed mobility-scooting,bed mobility - supine/sit Assist Level Minimal x 1 (25% assist) Transfer Training Sit/Stand Transfer Assist Level Moderate x 1 (50% assist) Chair Transfer Sit to/from Ambulatory Technique Chair Transfer None Assistive Devices Commode/Toilet Raised Toilet Seat,Grab Bars Transfer Assistive Devices Decrease in Yes Endurance Rehab OT IP prob,goals,plan Problems Date of Evaluation: 07/23/25 OT IP Problems Bed Mobility,Transfers,Balance,Self care,Safety Rehab Potential Rehab Potential Good Equipment Needs Assistive Devices Wheelchair Plan OT intervention Plan Bed Mobility,Transfers,Balance,Self care,Safety, Therapeutic Exercise OT Plan Frequency Daily Duration LOS Discharge Goals Bed Mobility Ability Assistance x1 Sit to Stand Chair Minimal x 1 (25% assist) Transfer Ability Chair Transfer Minimal x 1 (25% assist) Ability Chair Transfer Stand Pivot Technique Feeding Ability Assist with Tray Set Up Commode/Toilet Raised Toilet Seat,Grab Bars Transfer Assistive Devices Decrease in No Endurance Discharge Plan OT Discharge Plan At this time, pt's baseline is unknown, however pt presents with functional limitations in occupational performance related to generalized weakness and hx of diagnoses as listed in hx. While admitted at [facility], pt can benefit from skilled acute OT services and interventions to address functional limitations in occupational performance and help prevent further functional decline. Once medically stable and DC from [facility], pt could benefit from rehab placement for further OT services and interventions to address functional limitations in occupational performance along with caregiver education. Eval Complexity Eval Charge Codes 02082 - Moderate Complexity PHYSICIAN CERTIFICATION: I certify the specified therapy services for Danis Urbina are required, authorized, and reviewed every 30 days.
--- NOTE | 2025-07-23 09:37 | HMH.PHAAMS2 ---
- Antimicrobial Stewardship Review reviewed - no change Stewardship interventions: culture & sensitivity review (AFEBRILE, WBC WNL, BLOOD CX X2 PENDING.)
--- NOTE | 2025-07-23 09:59 | EXP.ACUTE.PN ---
Subjective *Date: 07/23/25 *Time: 13:52 Interval history: Patient very hard of hearing. Denies shortness of breath, chest pain, nausea or vomiting. Denies fever this morning. Feeling better since admission. Tolerating lunch during evaluation Medical Exam Vital signs and Labs for Last 24 Hours: Vital Signs Temp Pulse Pulse Resp BP BP Pulse Ox 07/23/25 08:00 97.8 F 76 18 115/69 96 07/23/25 06:40 07/23/25 05:00 07/23/25 04:00 97.3 F L 66 16 153/76 H 97 07/23/25 03:00 07/23/25 01:00 07/23/25 00:00 07/23/25 00:00 98.7 F 84 16 119/77 95 07/22/25 23:26 102.7 F H 103 H 20 122/72 07/22/25 23:14 102.7 F H 103 H 122/72 95 07/22/25 22:40 98 H 16 135/93 H 94 L 07/22/25 21:23 104.7 F H 107 H 20 148/90 H 95 O2 Del Method 07/23/25 08:00 Room Air 07/23/25 06:40 Room Air 07/23/25 05:00 Room Air 07/23/25 04:00 Room Air 07/23/25 03:00 Room Air 07/23/25 01:00 Room Air 07/23/25 00:00 Room Air 07/23/25 00:00 Room Air 07/22/25 23:26 Room Air 07/22/25 23:14 Room Air 07/22/25 22:40 Room Air 07/22/25 21:23 Room Air Intake and Output 07/22/25 07/23/25 07/23/25 23:59 07:59 15:59 Intake Total 1100 / 1277 527 / 887 360 / 887 Output Total 0 / 0 0 / 0 Balance 1100 / 1277 527 / 887 360 / 887 Intake: Intake, Oral Amount 177 / 537 360 / 537 Intake, Total IV Amount 1100 / 1100 350 / 350 Lactated Ringers 1000ML 1,000 1000 / 1000 ml @ 999 mls/hr IV .Q1H1M ONE Rx#:[id number] Piperacillin/Tazo 4.5 gm In 0.9 100 / 100 100 / 100 % Sodium Chloride 100 ml @ 200 mls/hr IV Q8H [facility] Rx#: [id number] Vancomycin/Water For Inj (Peg) 250 / 250 1.25 gm In 250 ml @ 125 mls/hr IV ONCE ONE Rx#:[id number] Output: Output, Urine Amount 0 / 0 0 / 0 Other: Number of Unmeasured Voids 1 1 Number of Bowel Movements 1 Weight 61.235 kg 58.332 kg Patient Weight 07/23/25 23:59 Weight 58.332 kg Laboratory Results - last 24 hr 07/22/25 21:00: Urine Color Yellow, Urine Appearance Turbid, Urine pH 6.5, Ur Specific Mellen 1.020, Urine Protein 2+ A, Urine Glucose (UA) Negative, Urine Ketones Negative, Urine Blood 3+ A, Urine Nitrate Negative, Urine Bilirubin Negative, Urine Urobilinogen 0.2, Ur Leukocyte Esterase 3+ A, Urine RBC 10-20, Urine WBC 50-100, Ur Squamous Epith Cells Occasional, Urine Bacteria 1+ 07/22/25 21:22: Chlamy pneumoniae PCR Not detected, Adenovirus (PCR) Not detected, B. pertussis DNA (PCR) Not detected, Coronavirus OC43 (PCR) Not detected, Coronavirus HKU1 (PCR) Not detected, Coronavirus 229E (PCR) Not detected, SARS-CoV-2 (PCR) Not detected, Coronavirus NL63 (PCR) Not detected, Human Metapneumovir PCR Not detected, Influenza A (H1) PCR Not detected, Influ A (H1N1/09) PCR Not detected, Influenza A (H3) PCR Not detected, Influenza Type A (PCR) Not detected, Influenza Type B (PCR) Not detected, M. pneumoniae (PCR) Not detected, Parainfluenza 1 (PCR) Not detected, Parainfluenza 2 (PCR) Not detected, Parainfluenza 3 (PCR) Not detected, Parainfluenza 4 (PCR) Not detected, RSV (PCR) Not detected, Entero/Rhino (PCR) Detected A 07/22/25 21:24: WBC 10.9 H, RBC 3.79 L, Hgb 10.6 L, Hct 32.4 L, MCV 85.5, MCH 28.0, MCHC 32.7, RDW 18.1 H, Plt Count 298, MPV 9.1, Neut % (Auto) 80.9 H, Lymph % (Auto) 7.3 L, Concho % (Auto) 10.3 H, Eos % (Auto) 0.5, Baso % (Auto) 0.6, Neut # (Auto) 8.9 H, Lymph # (Auto) 0.8, Concho # (Auto) 1.1 H, Eos # (Auto) 0.1, Baso # (Auto) 0.1, ESR 76 H, PT 11.4, INR 1.03, APTT 26.6, Sodium 138, Potassium 4.1, Chloride 107, Carbon Dioxide 26, Anion Gap 9.1, BUN 19, Creatinine 1.40 H, Estimated Creat Clear 41, Estimated GFR 50 L, Est GFR ( Amer) 60, Glucose 121 H, Calcium 8.8, Phosphorus 3.5, Magnesium 1.9, Total Bilirubin 0.5, AST 20, ALT 15, Alkaline Phosphatase 140 H, Total Creatine Kinase 60, Troponin I 0.02, C-Reactive Protein 134.0 H, Total Protein 7.5, Albumin 3.3 L, Globulin 4.2 H, Albumin/Globulin Ratio 0.8 L, Lipase 44, HCV Ab VLADIMIR w/Rflx PCR Qn Negative, HIV Ag/Ab Combo Qual Negative 07/23/25 00:50: Lactate 0.7, Troponin I 0.02 07/23/25 03:45: Troponin I 0.02 07/23/25 05:48: WBC 9.3, RBC 3.53 L, Hgb 10.1 L, Hct 31.2 L, MCV 88.4, MCH 28.6, MCHC 32.4, RDW 18.0 H, Plt Count 236, MPV 9.0, Neut % (Auto) 74.5, Lymph % (Auto) 11.5, Concho % (Auto) 12.1 H, Eos % (Auto) 0.6, Baso % (Auto) 0.9, Neut # (Auto) 6.9, Lymph # (Auto) 1.1, Concho # (Auto) 1.1 H, Eos # (Auto) 0.1, Baso # (Auto) 0.1, Sodium 139, Potassium 3.6, Chloride 110 H, Carbon Dioxide 25, Anion Gap 7.6, BUN 20, Creatinine 1.30 H, Estimated Creat Clear 42, Estimated GFR 54 L, Est GFR ( Amer) 65, Glucose 105 H, Calcium 8.2 L, Total Bilirubin 0.6, AST 20, ALT 14, Alkaline Phosphatase 115, Total Protein 6.3, Albumin 2.8 L D, Globulin 3.5 H, Albumin/Globulin Ratio 0.8 L I & O for Labs for Last 24 Hours: Intake & Output 07/20/25 07/21/25 07/22/25 07/23/25 23:59 23:59 23:59 23:59 Intake Total 1100 / 1277 887 / 887 Output Total 0 / 0 Balance 1100 / 1277 887 / 887 Weight 61.235 kg 58.332 kg Constitutional: Present no acute distress, thin, chronically ill appearing and cooperative Head: Present atraumatic and normocephalic Respiratory: Present normal respiratory effort; Absent rhonchi, wheezes or crackles Cardiac: Present Reg Rate and Rhythm GI: Present soft and normal bowel sounds; Absent distention or tenderness Extremities: Present normal inspection Comment:: Thin extremities Skin: Present intact; Absent erythema Neuro: Present Grossly Intact, alert, awake and oriented x 3 Comment:: Hard of hearing. 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: Medical Code(s): G80.1 - Spastic diplegic cerebral palsy (5) Anxiety: Status: Acute Category: Medical Code(s): F41.9 - Anxiety disorder, unspecified (6) Depressed: Status: Acute Qualifiers: Depression Type: unspecified Qualified Code(s): F32.A - Depression, unspecified Category: Medical Code(s): F32.A - Depression, unspecified (7) Type 2 diabetes mellitus: Status: Acute Category: Medical Code(s): E11.9 - Type 2 diabetes mellitus without complications (8) Rhinovirus infection: Status: Acute Category: Medical Code(s): B34.8 - Other viral infections of unspecified site Plan Patient was brought to the ER via EMS with altered mental status. Was found to have a UTI with history of recurrent UTIs. After discussion with the ER physician agreed to admit for IV antibiotics and further treatment. Meeting sepsis criteria on admission with fever of 104.7, tachycardic above 100, source of infection with UTI. Continue broad-spectrum antibiotics. Problems addressed as follows: Sepsis: Present on admission Urinary tract infection Rhinoviral infection - Urine culture still pending along with blood cultures. Feeling somewhat better. Fever defervesced this morning. Continue broad-spectrum antibiotics with vancomycin and Zosyn 4.5 g every 8 hours IV - White count normal this morning at 9.3. Hemoglobin 10.1. Kidney function stable with BUN 19, creatinine 1.4. Stable on room air. Goal sats greater than 90% -Will de-escalate antibiotics based on culture and sensitivity. - Tylenol 650 mg as needed every 4 hours for pain or fever. - Zofran as needed 4 mg IV every 8 hours for nausea or vomiting - Repeat CBC, CMP, magnesium ordered for the morning Morning glucose 105. Reported history of diabetes per chart review. Will obtain A1c. Does not appear to have hyperglycemia at this time. Holding on fingersticks and sliding scale insulin pending A1c results. Spastic cerebral palsy -Resume ropinirole 2 mg as needed twice daily Full code Cardiac diet Lovenox 40 mg subcu daily
--- NOTE | 2025-07-23 10:07 | SW/DCPLANNER ---
Addendum entered by [facility] 07/27/25 09:24: Patient discharged to [facility] level of care on 07/26. was agreeable w/ discharge plan. I have also updated Jacqueline EWING regarding situation. Addendum entered by [facility] 07/24/25 15:12: I have updated patient regarding situation as well. Addendum entered by [facility] 07/24/25 13:41: Jacqueline EWING collected all documents from patient's home and is now delivering them to [facility]/ [facility]. Addendum entered by [facility] 07/24/25 11:48: Jacqueline EWING is in route to patient's home to gather all documents for TRAVIS pending at [facility]. I have updated Morris w/ [facility]. Addendum entered by [facility] 07/24/25 10:46: Per [facility] she drove to patient' house last night so could sign MAP 14. was not willing to provide documentation requested for TRAVIS pending due to already turning it in the TRAVIS office. Unfortunately per TRAVIS office this paperwork will no be processed for four days. In order for TRAVIS office to release information to [facility] this process has to be completed. Carol stated the only option at this time point would be for to provide paperwork to [facility] so they can proceed w/ TRAVIS pending. I did attempt to contact w/ no answer at this time. I will update Jacqueline EWING as well. Addendum entered by [facility] 07/24/25 08:29: Updated patient information faxed to [facility] and [facility]. Addendum entered by [facility] 07/23/25 14:58: Isabella middleton/ [facility] is also interested in this patient. CM will continue to follow up. Addendum entered by [facility] 07/23/25 14:57: Patient discharged from [facility] on 07/18/25. Addendum entered by [facility] 07/23/25 14:49: I received a phone call from Jacqueline EWING stated that she does currently have an active case w/ this patient and will continue to follow up [phone]. Addendum entered by Gertrude De La Torre 07/23/25 13:33: 's phone number in the chart was incorrect (correct number [phone]). stated that she is in the process of completing the TRAVIS application and providing all documents. I informed that Carol middleton/ [facility] would be calling her back in the next few minutes. confirmed she will answer the phone call. CM will continue to follow up. Addendum entered by Gertrude De La Torre 07/23/25 13:17: Due to not being able to get ahold of patient's I have reached out to [employer] for a welfare check. Addendum entered by Gertrude De La Torre 07/23/25 12:28: Leticia middleton/ [facility] has denied this patient. Original Note: I spoke w/ patient regarding plans once medically stable for discharge. PT/OT evaluated patient and recommended SNF level of care. Patient was previously at [facility] for two month and per Leticia middleton/ [facility] was no longer able to stay due to refusing to complete Medicaid paperwork. Patient is agreeable to LTC this AM and prefers to [facility], [facility], [place] or [facility]. Patient refuses placement at [facility], [facility] or [facility]. Patient requested that I contact his regarding discharge planning. I attempted to contact patient's and daughter w/ no answer at this time. CM will continue to follow up and fax information to [facility], [facility], [place] and [facility]. Discharge date is unknown at this time.
[2025-07-23] MEDS: LACTATED RINGERS 1000ML 1,000 ML 100 ML IV (10:42)
[2025-07-23] MEDS: ROPINIROLE 1MG TABLET 2 MG PO ×2 (11:32→20:55)
--- OUTSIDE RECORDS SUMMARY | 2025-07-23 12:38 | XMS_ITS | Referral Summary ---
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
--- OUTSIDE RECORDS SUMMARY | 2025-07-23 12:38 | XMS_ITS | Clinical Summary ---
Author Organization [facility] Address [address] [place] [address] Care Team Providers Care Medicare Specialist Name Role Phone Unavailable Primary Care Provider [...] APPLY THICK LAYER OF CALMOSEPTINE AND LEAVE ELEVATED GUARD, MAY ALSO APPLY PRN Active nystatin (MYCOSTATIN) 911503 UNIT/GM ointment Apply 1 Application topically to [...] 04/06/2025 Dirty living conditions 04/05/2025 Overview (04/05/2025): [employer] [facility] concerns of house covered in [...] Type Department Care Team Description 05/08/[address] [facility] [address] [place] [address] Dereje Pickens, from Last 3 Months Social History Tobacco Use Types Packs/Day Years Used Date Smoking Tobacco: Never Smokeless Tobacco: Never Tobacco Cessation:Counseling Given: No Alcohol Use Standard Drinks/Week Comments Never 0 (1 standard drink = 0.6 oz pur e alcohol) [facility] Utilities Answer Date Recorded In the past [...] and heating? Not hard at all 11/04/2024 [facility] of Occupat ional Health - Occupational Stress [...] GED or equivalent No 11/04/2024 Preferred Language Sao [place]omean 11/04/2024 PHQ-2 Answer Date Recorded Patient Health [...] - 5.60 % 11/04/2024 12:31 AM EST [facility] Blood Venipuncture / Unknown 11/03/2024 6:18 PM EST 11/04/2024 12:19 AM EST Narrative [facility] - 11/04/2024 12:31 AM EST Hemoglobin A1C Ranges: Increased Risk for Diabetes 5.7% to 6.4% Diabetes >= 6.5% Diabetic Goal < 7.0% us Porter Maurice Colemanley DO LAB BLOOD ORDERABLES Marian menjivar Result [facility]
[address] [place] [address], from Last 3 Months or Most Recently [...]
--- OUTSIDE RECORDS SUMMARY | 2025-07-23 12:38 | XMS_ITS | Encounter Summary ---
Author Organization [facility] Address [address] [place] [id number] Care Team Providers Care Data Reduction Technician Name Role Phone [place], Dereje Reyna ESCAMILLA Primary Care Provider [phone] Encounter Details Date Type Department Care Team (Late st Contact Info) Description 11/19/2024 Results Follow-Up [facility] [place] [address] [facility] [address] [place] [address] Erasto Pressley APRN [address] [facility] [address] [place] [address] Social History Tobacco Use Types Packs/Day Years Used Date Smoking Tobacco: Never Smokeless Tobacco: Never Alcohol Use Standard Drinks/Week Comments Never 0 (1 standard drink = 0.6 oz pur e alcohol) [facility] Utilities Answer Date Recorded In the past 12 months has [employer], gas, oil, or water [employer] threatened to shut off services in your [...] and heating? Not hard at all 11/04/2024 [facility] [place] of Occupat ional Health - Occupational Stress [...] GED or equivalent No 11/04/2024 Preferred Language Sierra Leonean 11/04/2024 PHQ-2 Answer Date Recorded Patient Health [...] documented as of this encounter Care Teams Data Reduction Technician Relationship Specialty Start Date End Date Dereje Pickens DO [address] [place] [phone] PCP - General Family Medicine 11/03/24 05/14/25 documented as of this encounter
--- OUTSIDE RECORDS SUMMARY | 2025-07-23 12:38 | XMS_ITS | Encounter Summary ---
Author Organization [facility] Address [address] [place] [id number] Care Team Providers Care Glove Parts Cutter Name Role Phone Dereje Pickens DO Primary Care Provider [phone] Encounter Details Date Type Department Care Team (Late st Contact Info) Description 05/08/2025 Telephone [facility] [address] [place] [address] Dereje Pickens DO [address] [place] [address] Social History Tobacco Use Types Packs/Day Years Used Date Smoking Tobacco: Never Smokeless Tobacco: Never Alcohol Use Standard Drinks/Week Comments Never 0 (1 standard drink = 0.6 oz pur e alcohol) [facility] Utilities Answer Date Recorded In the past 12 months has [facility] electric, gas, oil, or water [employer] threatened to shut off services in your [...] and heating? Not hard at all 11/04/2024 [facility] [place] of Occupat ional Health - Occupational Stress [...] GED or equivalent No 11/04/2024 Preferred Language Kosovan 11/04/2024 PHQ-2 Answer Date Recorded Patient Health [...] patient: HOME HEALTH Best call back number: [phone] Patient is needing: YOANA CALLED TO ADVISE THAT PATIENT IS A NON-ADMIT FOR HOME HEALTH, HE IS GOING TO [facility] TOMOR[facility] AND IS NOT SAFE AT HOME documented in this encounter Plan of Treatment Not on file documented as of this encounter Visit Diagnoses Not on filedocumented in this encounter Additional Health Concerns Infection Onset Date 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
--- OUTSIDE RECORDS SUMMARY | 2025-07-23 12:38 | XMS_ITS | Clinical Summary ---
Author Organization [facility] Address [address] [place] [address] Care Team Providers Care Physical Aerodynamicist Name Role Phone Pcp, No Primary Care [...] 07/21/2024 Overview (07/21/2024): Bed bound at baseline [place] (hard of hearing) 07/21/2024 Resolved Problems Problem [...] answer 11/24/2024 How often do you attend [facility] or amish services? Patient unable to answer 11/24/2024 Do you belong to any clubs o r organizations such as caodaism groups, unions, fraternal or athletic groups, or [...] and heating? Patient unable to answer 09/05/2024 [facility] of Occupat ional Health - Occupational Stress [...] any time in the past 12 m [facility], were you homeless or living in a longterm (including now)? No 01/12/2025 Utilities Answer Date [...] series) 2012 UKY-Diabetes: Hemoglobin A1C 05/03/2025, 08/14/2024 WCA-ASAUP-49 Vaccine (2 - 2024- season) 2025 12/20/2020 [...] Antibody Negative Negative 09/04/2024 11:18 AM EST [facility] Blood Venous blood specimen / Unknown Venipuncture / Unknown 09/04/2024 10:22 AM EST 09/04/2024 10:39 AM EST us Anthony So MD LAB BLOOD ORDERABLES Final R esult [facility] [address] [place] [address] * Hemoglobin A1c (08/14/2024 6:36 AM EST) Hemoglobin A1c 5.6 <5.7 % 08/15/2024 12:03 AM EST [facility] Blood Venous blood specimen / Unknown Venipuncture / Unknown 08/14/2024 6:36 AM EST 08/14/2024 6:42 AM EST Narrative [facility] - 08/15/2024 12:03 AM EST HA1C Interpretive Data: Diagnosis of Diabetes: Diabetic > or = 6.5% Pre-diabetic 5.7 to 6.4% Non-diabetic < or = 5.6% Glycemic Targets for Type I and Type II Diabetics: Non- Adults <7.0% Adults <6.0% Children and Adolescents <7.5% Source: [place] [employer]. Standards of medical care in diabetes,2017. Diabetes Care.2017:40 (suppl 1):S1-S135. HbA1c assay performed by an ion-exchange chromatography method that is certified traceable to the DCCT. 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 Source: [facility]. 11/06/2024 Insurance [employer] Advance Directives Documents on File Type Date Recorded Patient Time Checker Expl anation Advance Directives and Livin g [...] Stark Daughter Health Care Agent Care Teams Physical Aerodynamicist Relationship Specialty Start Date End Date Pcp, No [address] [place] [address] PCP - General Family Medicine 06/20/24
--- OUTSIDE RECORDS SUMMARY | 2025-07-23 12:38 | XMS_ITS | Clinical Summary ---
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
[2025-07-23 15:52] LABS: Hemoglobin A1C 4.6 % (4.0-6.0)
[2025-07-23] MEDS: ACETAMINOPHEN 325MG TAB 650 MG PO (18:22)
[2025-07-23] MEDS: PANTOPRAZOLE 40MG TABLET 40 MG PO (20:54)
[2025-07-24] MEDS: VANCOMYCIN HCL 1,000 MG in 0.9 % SODIUM CHLORIDE 250 ML 125 MG IV (00:15)
[2025-07-24] MEDS: LACTATED RINGERS 1000ML 1,000 ML 100 ML IV (00:16)
[2025-07-24] MEDS: ACETAMINOPHEN 325MG TAB 650 MG PO (03:35)
[2025-07-24 04:00] VITALS: BP 115/69; PULSE 92; RESP 18; TEMP 36.7; O2SAT 95; BMI 20.7
--- NOTE | 2025-07-24 05:16 | PC.NURSE ---
Pt. is alert and orientated x 4. Pt. is on room air. Pt. is extremely hard of hearing. Using white board and dry erase marker to ask and clarify questions. Pt. c/o left hip pain. Pt. states that it has hurt for a long time. Tylenol has helped some for the pain. Pt. is getting IV fluids and IV antibiotics. Pt. has cerebral palsy and is unable to turn to comfortable position by himself. Pt. needs assist x 1 -2. P.t able to help some with movement. Pt. slept off and on this shift. Pt. voids/stools per briefs. Pt. was sleeping and woke up with restless leg syndrome. Pt. had Requip dose earlier in the evening. Pt. states he needs it three times a day or every 8 hours. Pt. turned every 2 hours with patient directing what is comfortable for him. Pt. has a hard time using call light so frequently checked. Pt. calls out for nurse when needing something because of his hearing loss. Personal items in reach but he needs help with getting things. left arm contracted and has moderate use of the right arm. Bed in low and locked position. Bed alarm on and safety measures in place.
[2025-07-24] MEDS: PIPERACILLIN/TAZO 4.5 GM in 0.9 % SODIUM CHLORIDE 100 ML IV ×3 (05:41→21:26)
[2025-07-24 06:26] LABS: Hematocrit 27.8 % (42.0-52.0); Hemoglobin 8.6 g/dL (14.1-18.0); Immature Granulocytes % 0.1 %; Mean Corpuscular HGB Conc 30.9 g/dL (31.8-35.4); Mean Corpuscular Hemoglobin 27.2 pg (27.0-31.2); Mean Corpuscular Volume 88.0 fl (80-94); Nucleated Red Blood Cells % 0 %; Platelet Count 214 K/mm3 (142-424); Red Blood Count 3.16 M/mm3 (4.60-6.20); Red Cell Distribution Width-SD 57.8 fL; White Blood Count 7.5 K/mm3 (4.8-10.8)
[2025-07-24 06:49] LABS: Alanine Aminotransferase 13 U/L (12-78); Albumin Level 2.6 g/dl (3.5-5.0); Albumin/Globulin Ratio 0.8 (1.1-1.8); Alkaline Phosphatase 102 U/L (38-126); Anion Gap 9.7 mEq/L (5-15); Aspartate Amino Transferase 22 U/L (17-59); Bilirubin,Total 0.4 mg/dl (0.2-1.3); Blood Urea Nitrogen 18 mg/dl (9-20); Calcium 8.0 mg/dl (8.4-10.2); Carbon Dioxide 21 mmol/L (22.0-30.0); Chloride 110 mmol/L (98-107); Creatinine Clearance Estimated 41 mL/min (50-200); Creatinine,Serum 1.40 mg/dl (0.66-1.25); Estimated Glomerular Filt Rate 50 ml/min (>60); GFR (African American) 60 ML/MIN (>60); Globulin 3.3 g/dL (1.3-3.2); Glucose 102 mg/dl (74-100); Magnesium 1.8 mg/dl (1.6-2.3); Potassium 3.7 mmoL/L (3.5-5.1); Sodium 137 mmol/L (136-145); Total Protein,Serum 5.9 g/dl (6.3-8.2)
[2025-07-24 07:48] VITALS: BP 105/62; PULSE 76; RESP 12; TEMP 36.9; O2SAT 94
[2025-07-24] MEDS: ROPINIROLE 1MG TABLET 2 MG PO ×2 (08:16→20:09)
--- NOTE | 2025-07-24 09:39 | EXP.ACUTE.PN ---
Subjective *Date: 07/24/25 *Time: 09:44 Interval history: Patient very hard of hearing. Denies shortness of breath, chest pain, nausea or vomiting. Denies fever this morning. Feeling better since admission. Tolerating lunch during evaluation Medical Exam Vital signs and Labs for Last 24 Hours: Vital Signs Temp Pulse Resp BP Pulse Ox O2 Del Method 07/24/25 07:48 98.4 F 76 12 105/62 L 94 L Room Air 07/24/25 07:00 Room Air 07/24/25 05:00 Room Air 07/24/25 04:00 98.1 F 92 H 18 115/69 95 Room Air 07/24/25 03:00 Room Air 07/24/25 01:00 Room Air 07/23/25 23:47 97.5 F L 68 14 127/69 95 Room Air 07/23/25 23:00 Room Air 07/23/25 21:00 Room Air 07/23/25 20:00 14 92 L Room Air 07/23/25 19:52 99.9 F H 94 H 14 127/63 92 L Room Air 07/23/25 19:00 Room Air 07/23/25 16:00 99.8 F H 87 18 136/66 95 Room Air 07/23/25 15:00 Room Air 07/23/25 12:53 Room Air 07/23/25 12:00 98.2 F 77 18 137/68 97 Room Air 07/23/25 11:00 Room Air Intake and Output 07/23/25 07/24/25 07/24/25 23:59 07:59 15:59 Intake Total 1470 / 3867 490 / 790 300 / 790 Output Total 0 / 0 0 / 0 Balance 1470 / 3867 490 / 790 300 / 790 Intake: Intake, Oral Amount 270 / 1317 240 / 540 300 / 540 Intake, Total IV Amount 1200 / 2550 250 / 250 Lactated Ringers 1000ML 1,000 1000 / 2000 ml @ 100 mls/hr IV .Q10H [facility] Rx #:[id number] Piperacillin/Tazo 4.5 gm In 0.9 200 / 300 % Sodium Chloride 100 ml @ 200 mls/hr IV Q8H YANDEL Rx#:[id number] Vancomycin HCl 1,000 mg In 0.9 250 / 250 % Sodium Chloride 250 ml @ 125 mls/hr IV Q24H YANDEL Rx#:[id number] Output: Output, Urine Amount 0 / 0 0 / 0 Other: Number of Unmeasured Voids 1 2 Number of Bowel Movements 1 Weight 62.188 kg Patient Weight 07/24/25 23:59 Weight 62.188 kg Laboratory Results - last 24 hr 07/22/25 21:00: Urine Color Yellow, Urine Appearance Turbid, Urine pH 6.5, Ur Specific [place] 1.020, Urine Protein 2+ A, Urine Glucose (UA) Negative, Urine Ketones Negative, Urine Blood 3+ A, Urine Nitrate Negative, Urine Bilirubin Negative, Urine Urobilinogen 0.2, Ur Leukocyte Esterase 3+ A, Urine RBC 10-20, Urine WBC 50-100, Ur Squamous Epith Cells Occasional, Urine Bacteria 1+ 07/23/25 06:48: Hemoglobin A1c 4.6 07/24/25 06:05: WBC 7.5, RBC 3.16 L, Hgb 8.6 L, Hct 27.8 L, MCV 88.0, MCH 27.2, MCHC 30.9 L, RDW 17.8 H, Plt Count 214, MPV 8.8, Neut % (Auto) 71.8, Lymph % (Auto) 12.3, [place] % (Auto) 12.1 H, Eos % (Auto) 2.8, Baso % (Auto) 0.9, Neut # (Auto) 5.4, Lymph # (Auto) 0.9, [place] # (Auto) 0.9, Eos # (Auto) 0.2, Baso # (Auto) 0.1, Sodium 137, Potassium 3.7, Chloride 110 H, Carbon Dioxide 21 L, Anion Gap 9.7, BUN 18, Creatinine 1.40 H, Estimated Creat Clear 41, Estimated GFR 50 L, Est GFR ( Amer) 60, Glucose 102 H, Calcium 8.0 L, Magnesium 1.8, Total Bilirubin 0.4, AST 22, ALT 13, Alkaline Phosphatase 102, Total Protein 5.9 L, Albumin 2.6 L, Globulin 3.3 H, Albumin/Globulin Ratio 0.8 L I & O for Labs for Last 24 Hours: Intake & Output 07/21/25 07/22/25 07/23/25 07/24/25 23:59 23:59 23:59 23:59 Intake Total 1100 / 1277 3627 / 3867 790 / 790 Output Total 0 / 0 0 / 0 Balance 1100 / 1277 3627 / 3867 790 / 790 Weight 61.235 kg 58.332 kg 62.188 kg Microbiology Reports for the Last 24 Hours: Microbiology 07/22/25 21:00 Urine,Catheterized Urine Culture - Preliminary Gram Negative Rods 07/22/25 21:23 Blood Blood Culture - Preliminary NO GROWTH AFTER 24 HOURS 07/22/25 21:15 Blood Blood Culture - Preliminary NO GROWTH AFTER 24 HOURS Constitutional: Present no acute distress, thin, chronically ill appearing and cooperative Head: Present atraumatic and normocephalic Respiratory: Present normal respiratory effort; Absent rhonchi, wheezes or crackles Cardiac: Present Reg Rate and Rhythm GI: Present soft and normal bowel sounds; Absent distention or tenderness Extremities: Present normal inspection Comment:: Thin extremities Skin: Present intact; Absent erythema Neuro: Present Grossly Intact, alert, awake and oriented x 3 Comment:: Hard of hearing. Chronic deficits from his cerebral palsy Assessment and Plan *Assessment and plan (1) Sepsis: Status: Acute Category: Medical Code(s): A41.9 - Sepsis, unspecified organism (2) UTI (urinary tract infection): Problem Comment: Gram-negative rods Status: Acute Qualifiers: Hematuria presence: without hematuria Urinary tract infection type: acute cystitis Qualified Code(s): N30.00 - Acute cystitis without hematuria Category: Medical Code(s): N39.0 - Urinary tract infection, site not specified (3) CKD (chronic kidney disease): Status: Acute Category: Medical Code(s): N18.9 - Chronic kidney disease, unspecified (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: Medical Code(s): G80.1 - Spastic diplegic cerebral palsy (5) Anxiety: Status: Acute Category: Medical Code(s): F41.9 - Anxiety disorder, unspecified (6) Depressed: Status: Acute Qualifiers: Depression Type: unspecified Qualified Code(s): F32.A - Depression, unspecified Category: Medical Code(s): F32.A - Depression, unspecified (7) Type 2 diabetes mellitus: Status: Ruled-out Category: Medical Code(s): E11.9 - Type 2 diabetes mellitus without complications (8) Rhinovirus infection: Status: Acute Category: Medical Code(s): B34.8 - Other viral infections of unspecified site Plan Patient was brought to the ER via EMS with altered mental status. Was found to have a UTI with history of recurrent UTIs. After discussion with the ER physician agreed to admit for IV antibiotics and further treatment. Meeting sepsis criteria on admission with fever of 104.7, tachycardic above 100, source of infection with UTI. Continue broad-spectrum antibiotics. Continues to require inpatient management. Needs placement, case management working with to try and facilitate placement to rehab. Problems addressed as follows: Sepsis: Present on admission Urinary tract infection Rhinoviral infection - Blood cultures negative. Urine culture positive for greater than 100,000 CFU's of gram-negative rods. Awaiting speciation and sensitivity. Remains afebrile. Discontinue vancomycin. - Continue Zosyn 4.5 g every 8 hours IV. - White count normal at 7.5, hemoglobin 8.6. Kidney function stable BUN 18, creatinine 1.4 - Stable on room air. Goal sats greater than 90% - Tylenol 650 mg as needed every 4 hours for pain or fever. - Zofran as needed 4 mg IV every 8 hours for nausea or vomiting - Repeat CBC, CMP, magnesium ordered for the morning A1c normal 4.6. Not diagnostic for diabetes. Will remove diabetes from patient's chart Spastic cerebral palsy: Complicates all aspects of his care, Resume ropinirole 2 mg as needed twice daily Full code Cardiac diet Lovenox 40 mg subcu daily
--- NOTE | 2025-07-24 10:15 | HMH.PHAAMS2 ---
- Antimicrobial Stewardship Review de-escalation/chg therapy Stewardship interventions: discontinue antimicrobial, de-escalation/chg therapy Comments: de-escalate and discontinue vancomycin per MD
[2025-07-24 12:00] VITALS: BP 109/80; PULSE 87; RESP 12; TEMP 36.4; O2SAT 96
[2025-07-24 16:00] VITALS: BP 112/56; PULSE 84; RESP 12; TEMP 36.9; O2SAT 95
[2025-07-24 19:45] VITALS: BP 150/72; PULSE 98; RESP 18; TEMP 38.1; O2SAT 95
[2025-07-24] MEDS: PANTOPRAZOLE 40MG TABLET 40 MG PO (20:09)
[2025-07-25] VITALS: BP 169/83; PULSE 96; RESP 17; TEMP 37.9; O2SAT 95
--- NOTE | 2025-07-25 02:06 | PC.NURSE ---
Pt AOx4. Extremely [place]. Purewick placed on patient, still also wearing a brief for bowel movements. Receiving IVABx. Denies pain or any additional needs. Currently resting in bed with eyes closed. Respirations even and unlabored. Bed is low, locked, and call light is in reach.
[2025-07-25 04:00] VITALS: BP 114/67; PULSE 82; RESP 18; TEMP 38.5; O2SAT 96; BMI 19.5
[2025-07-25] MEDS: ACETAMINOPHEN 325MG TAB 650 MG PO ×2 (04:34→21:20)
[2025-07-25] MEDS: PIPERACILLIN/TAZO 4.5 GM in 0.9 % SODIUM CHLORIDE 100 ML IV ×3 (05:48→21:21)
[2025-07-25 07:49] LABS: Hematocrit 27.3 % (42.0-52.0); Hemoglobin 8.8 g/dL (14.1-18.0); Immature Granulocytes % 0.2 %; Mean Corpuscular HGB Conc 32.2 g/dL (31.8-35.4); Mean Corpuscular Hemoglobin 27.8 pg (27.0-31.2); Mean Corpuscular Volume 86.1 fl (80-94); Nucleated Red Blood Cells % 0 %; Platelet Count 241 K/mm3 (142-424); Red Blood Count 3.17 M/mm3 (4.60-6.20); Red Cell Distribution Width-SD 57.0 fL; White Blood Count 6.7 K/mm3 (4.8-10.8)
[2025-07-25 08:00] VITALS: BP 110/65; PULSE 75; RESP 16; TEMP 36.9; O2SAT 95
[2025-07-25 08:05] LABS: Alanine Aminotransferase 12 U/L (12-78); Albumin Level 2.8 g/dl (3.5-5.0); Albumin/Globulin Ratio 0.8 (1.1-1.8); Alkaline Phosphatase 98 U/L (38-126); Anion Gap 7.5 mEq/L (5-15); Aspartate Amino Transferase 22 U/L (17-59); Bilirubin,Total 0.5 mg/dl (0.2-1.3); Blood Urea Nitrogen 13 mg/dl (9-20); Calcium 8.2 mg/dl (8.4-10.2); Carbon Dioxide 24 mmol/L (22.0-30.0); Chloride 108 mmol/L (98-107); Creatinine Clearance Estimated 42 mL/min (50-200); Creatinine,Serum 1.30 mg/dl (0.66-1.25); Estimated Glomerular Filt Rate 54 ml/min (>60); GFR (African American) 65 ML/MIN (>60); Globulin 3.4 g/dL (1.3-3.2); Glucose 74 mg/dl (74-100); Potassium 3.5 mmoL/L (3.5-5.1); Sodium 136 mmol/L (136-145); Total Protein,Serum 6.2 g/dl (6.3-8.2)
--- NOTE | 2025-07-25 08:09 | PC.NURSE ---
Urine culture results forwarded to hospitalist.
[2025-07-25] MEDS: ROPINIROLE 1MG TABLET 2 MG PO ×2 (08:17→21:20)
--- NOTE | 2025-07-25 09:22 | P.CONPHA_ITS ---
- Antimicrobial Stewardship Review 48 hour timeout review Stewardship interventions: 48 hour timeout review (PSEUDOMONAS IN URINE S ENSITIVE WITH ZOSYN.)
--- NOTE | 2025-07-25 09:22 | HMH.PHAAMS2 ---
- Antimicrobial Stewardship Review culture & sensitivity review Stewardship interventions: culture & sensitivity review (PSEUDOMONAS IN URINE CX. SENSITIVE TO ZOSYN.)
--- NOTE | 2025-07-25 09:37 | P.PN_ITS ---
Subjective *Date: 07/25/25 *Time: 12:26 Interval history: Patient very hard of hearing. No shortness of breath today. Stable on room air. Denies chest pain. Working with therapy and nursing. Tolerating p.o. intake. Afebrile. Medical Exam Vital signs and Labs for Last 24 Hours: Vital Signs Temp Pulse Resp BP Pulse Ox O2 Del Method 07/25/25 08:00 98.4 F 75 16 110/65 95 Room Air 07/25/25 06:53 Room Air 07/25/25 05:00 Room Air 07/25/25 04:00 101.3 F H 82 18 114/67 96 Room Air 07/25/25 03:00 Room Air 07/25/25 01:00 Room Air 07/25/25 00:00 100.3 F H 96 H 17 169/83 H 95 Room Air 07/24/25 23:00 Room Air 07/24/25 21:00 Room Air 07/24/25 20:00 Room Air 07/24/25 19:45 100.6 F H 98 H 18 150/72 H 95 Room Air 07/24/25 18:53 Room Air 07/24/25 16:37 Room Air 07/24/25 16:00 98.5 F 84 12 112/56 L 95 Room Air 07/24/25 15:00 Room Air 07/24/25 12:48 Room Air 07/24/25 12:00 97.6 F 87 12 109/80 L 96 Room Air 07/24/25 11:00 Room Air Intake and Output 07/24/25 07/25/25 07/25/25 23:59 07:59 15:59 Intake Total 1200 / 2430 100 / 100 Output Total 0 / 0 650 / 650 Balance 1200 / 2430 -550 / -550 Intake: Intake, Total IV Amount 1200 / 1550 100 / 100 Lactated Ringers 1000ML 1,000 1000 / 1000 ml @ 100 mls/hr IV .Q10H [facility] Rx #:[id number] Piperacillin/Tazo 4.5 gm In 0.9 200 / 300 100 / 100 % Sodium Chloride 100 ml @ 200 mls/hr IV Q8H [facility]DEL Rx#:[id number] Output: Output, Urine Amount 0 / 0 650 / 650 Other: Number of Unmeasured Voids 1 Number of Bowel Movements 2 Weight 58.513 kg Patient Weight 07/25/25 23:59 Weight 58.513 kg Laboratory Results - last 24 hr 07/25/25 06:44: WBC 6.7, RBC 3.17 L, Hgb 8.8 L, Hct 27.3 L, MCV 86.1, MCH 27.8, MCHC 32.2, RDW 18.0 H, Plt Count 241, MPV 9.2, Neut % (Auto) 64.8, Lymph % (Auto) 15.3, [place] % (Auto) 17.0 H, Eos % (Auto) 2.1, Baso % (Auto) 0.6, Neut # (Auto) 4.3, Lymph # (Auto) 1.0, [place] # (Auto) 1.1 H, Eos # (Auto) 0.1, Baso # (Auto) 0.0, Sodium 136, Potassium 3.5, Chloride 108 H, Carbon Dioxide 24, Anion Gap 7.5, BUN 13 D, Creatinine 1.30 H, Estimated Creat Clear 42, Estimated GFR 54 L, Est GFR ( Amer) 65, Glucose 74, Calcium 8.2 L, Total Bilirubin 0.5, AST 22, ALT 12, Alkaline Phosphatase 98, Total Protein 6.2 L, Albumin 2.8 L, Globulin 3.4 H, Albumin/Globulin Ratio 0.8 L I & O for Labs for Last 24 Hours: Intake & Output 07/22/25 07/23/25 07/24/25 07/25/25 23:59 23:59 23:59 23:59 Intake Total 1100 / 1277 3627 / 3867 2430 / 2430 100 / 100 Output Total 0 / 0 0 / 0 650 / 650 Balance 1100 / 1277 3627 / 3867 2430 / 2430 -550 / -550 Weight 61.235 kg 58.332 kg 62.188 kg 58.513 kg Microbiology Reports for the Last 24 Hours: Microbiology 07/22/25 21:00 Urine,Catheterized Urine Culture - Final Pseudomonas aeruginosa 07/22/25 21:23 Blood Blood Culture - Preliminary NO GROWTH AFTER 48 HOURS 07/22/25 21:15 Blood Blood Culture - Preliminary NO GROWTH AFTER 48 HOURS Constitutional: Present no acute distress, thin, chronically ill appearing and cooperative Head: Present atraumatic and normocephalic Respiratory: Present normal respiratory effort; Absent rhonchi, wheezes or crackles Cardiac: Present Reg Rate and Rhythm GI: Present soft and normal bowel sounds; Absent distention or tenderness Extremities: Present normal inspection Comment:: Thin extremities Skin: Present intact; Absent erythema Neuro: Present Grossly Intact, alert, awake and oriented x 3 Comment:: Hard of hearing. Chronic deficits from his cerebral palsy Assessment and Plan *Assessment and plan (1) Sepsis: Status: Acute Category: Medical Code(s): A41.9 - Sepsis, unspecified organism (2) UTI (urinary tract infection): Problem Comment: Gram-negative rods; Pseudomonas, present on admission Status: Acute Qualifiers: Hematuria presence: without hematuria Urinary tract infection type: acute cystitis Qualified Code(s): N30.00 - Acute cystitis without hematuria Category: Medical Code(s): N39.0 - Urinary tract infection, site not specified (3) CKD (chronic kidney disease): Status: Acute Category: Medical Code(s): N18.9 - Chronic kidney disease, unspecified (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: Medical Code(s): G80.1 - Spastic diplegic cerebral palsy (5) Anxiety: Status: Acute Category: Medical Code(s): F41.9 - Anxiety disorder, unspecified (6) Depressed: Status: Acute Qualifiers: Depression Type: unspecified Qualified Code(s): F32.A - Depression, unspecified Category: Medical Code(s): F32.A - Depression, unspecified (7) Type 2 diabetes mellitus: Status: Ruled-out Category: Medical Code(s): E11.9 - Type 2 diabetes mellitus without complications (8) Rhinovirus infection: Status: Acute Category: Medical Code(s): B34.8 - Other viral infections of unspecified site Plan Patient was brought to the ER via EMS with altered mental status. Was found to have a UTI with history of recurrent UTIs. After discussion with the ER physician agreed to admit for IV antibiotics and further treatment. Meeting sepsis criteria on admission with fever of 104.7, tachycardic above 100, source of infection with UTI. Continue broad-spectrum antibiotics. Continues to require inpatient management. Needs placement, case management working with to try and facilitate placement to rehab. Awaiting placement rehab. Working with therapy. Problems addressed as follows: Sepsis: Present on admission Urinary tract infection Rhinoviral infection - Blood cultures negative. Urine culture positive for greater than 100,000 CFU's of gram-negative rods. - Urine positive for Pseudomonas, sensitive to Zosyn, intermediate resistant to Levaquin. Sensitive to ciprofloxacin however. Will transition to Cipro at discharge to complete 7-day course of antibiotics. - Continue Zosyn 4.5 g every 8 hours IV. - White count normal at 6.7, hemoglobin stable at 8.8. Kidney function stable with BUN 13, creatinine 1.3. Repeat CBC, CMP, magnesium ordered for the morning - Stable on room air. Goal sats greater than 90% - Tylenol 650 mg as needed every 4 hours for pain or fever. - Zofran as needed 4 mg IV every 8 hours for nausea or vomiting A1c normal 4.6. Not diagnostic for diabetes. Will remove diabetes from patient's chart Spastic cerebral palsy: Complicates all aspects of his care, Resume ropinirole 2 mg as needed twice daily Full code Cardiac diet Lovenox 40 mg subcu daily
--- NOTE | 2025-07-25 10:33 | P.PN_ITS ---
Subjective *Date: 07/25/25 *Time: 10:33 Medical Exam Vital signs and Labs for Last 24 Hours: Vital Signs Temp Pulse Resp BP Pulse Ox O2 Del Method 07/25/25 08:00 98.4 F 75 16 110/65 95 Room Air 07/25/25 06:53 Room Air 07/25/25 05:00 Room Air 07/25/25 04:00 101.3 F H 82 18 114/67 96 Room Air 07/25/25 03:00 Room Air 07/25/25 01:00 Room Air 07/25/25 00:00 100.3 F H 96 H 17 169/83 H 95 Room Air 07/24/25 23:00 Room Air 07/24/25 21:00 Room Air 07/24/25 20:00 Room Air 07/24/25 19:45 100.6 F H 98 H 18 150/72 H 95 Room Air 07/24/25 18:53 Room Air 07/24/25 16:37 Room Air 07/24/25 16:00 98.5 F 84 12 112/56 L 95 Room Air 07/24/25 15:00 Room Air 07/24/25 12:48 Room Air 07/24/25 12:00 97.6 F 87 12 109/80 L 96 Room Air 07/24/25 11:00 Room Air Intake and Output 07/24/25 07/25/25 07/25/25 23:59 07:59 15:59 Intake Total 1200 / 2430 100 / 370 270 / 370 Output Total 0 / 0 650 / 650 Balance 1200 / 2430 -550 / -280 270 / -280 Intake: Intake, Oral Amount 270 / 270 Intake, Total IV Amount 1200 / 1550 100 / 100 Lactated Ringers 1000ML 1,000 1000 / 1000 ml @ 100 mls/hr IV .Q10H [facility] Rx #:[id number] Piperacillin/Tazo 4.5 gm In 0.9 200 / 300 100 / 100 % Sodium Chloride 100 ml @ 200 mls/hr IV Q8H [facility] Rx#:[id number] Output: Output, Urine Amount 0 / 0 650 / 650 Other: Number of Unmeasured Voids 1 Number of Bowel Movements 2 Weight 58.513 kg Patient Weight 07/25/25 23:59 Weight 58.513 kg Laboratory Results - last 24 hr 07/25/25 06:44: WBC 6.7, RBC 3.17 L, Hgb 8.8 L, Hct 27.3 L, MCV 86.1, MCH 27.8, MCHC 32.2, RDW 18.0 H, Plt Count 241, MPV 9.2, Neut % (Auto) 64.8, Lymph % (Auto) 15.3, [place] % (Auto) 17.0 H, Eos % (Auto) 2.1, Baso % (Auto) 0.6, Neut # (Auto) 4.3, Lymph # (Auto) 1.0, [place] # (Auto) 1.1 H, Eos # (Auto) 0.1, Baso # (Auto) 0.0, Sodium 136, Potassium 3.5, Chloride 108 H, Carbon Dioxide 24, Anion Gap 7.5, BUN 13 D, Creatinine 1.30 H, Estimated Creat Clear 42, Estimated GFR 54 L, Est GFR ( Amer) 65, Glucose 74, Calcium 8.2 L, Total Bilirubin 0.5, AST 22, ALT 12, Alkaline Phosphatase 98, Total Protein 6.2 L, Albumin 2.8 L, Globulin 3.4 H, Albumin/Globulin Ratio 0.8 L I & O for Labs for Last 24 Hours: Intake & Output 07/22/25 07/23/25 07/24/25 07/25/25 23:59 23:59 23:59 23:59 Intake Total 1100 / 1277 3627 / 3867 2430 / 2430 370 / 370 Output Total 0 / 0 0 / 0 650 / 650 Balance 1100 / 1277 3627 / 3867 2430 / 2430 -280 / -280 Weight 61.235 kg 58.332 kg 62.188 kg 58.513 kg Microbiology Reports for the Last 24 Hours: Microbiology 07/22/25 21:00 Urine,Catheterized Urine Culture - Final Pseudomonas aeruginosa 07/22/25 21:23 Blood Blood Culture - Preliminary NO GROWTH AFTER 48 HOURS 07/22/25 21:15 Blood Blood Culture - Preliminary NO GROWTH AFTER 48 HOURS The patient's infection will respond to the chosen ABx?: Yes Is the patient receiving the right drug, dose, and route?: Yes Could a more targeted ABx be ordered?: No (PSEUDOMONAS IN URINE CX. SENSITIVE TO ZOSYN. )
[2025-07-25 12:00] VITALS: BP 111/60; PULSE 79; RESP 16; TEMP 37; O2SAT 96
--- NOTE | 2025-07-25 15:23 | PC.NURSE ---
AOX4 BUT EXTREMELY ASA'CARSARMIUT WHICH MAKES COMMUNICATION DIFFICULT AT TIMES. USES WHITE BOARD FOR COMMUNICATION. HAS SAT UP TO CHAIR FOR MOST OF THE DAY AND TOLERATED WELL. PURECHRISTIANCK PLACED TODAY.
[2025-07-25 16:00] VITALS: BP 118/65; PULSE 72; RESP 16; TEMP 36.7; O2SAT 96
[2025-07-25 20:00] VITALS: BP 158/97; PULSE 97; RESP 14; TEMP 37.5; O2SAT 98
[2025-07-25] MEDS: PANTOPRAZOLE 40MG TABLET 40 MG PO (21:21)
[2025-07-26] VITALS: BP 109/57; PULSE 65; RESP 14; TEMP 36.7; O2SAT 96
[2025-07-26 04:00] VITALS: BP 128/73; PULSE 80; RESP 14; TEMP 37; O2SAT 94; BMI 18.3
[2025-07-26] MEDS: PIPERACILLIN/TAZO 4.5 GM in 0.9 % SODIUM CHLORIDE 100 ML IV (06:05)
--- NOTE | 2025-07-26 06:36 | PC.NURSE ---
Pt. is alert and orientated x 4. Pt. is on room air. Pt. is very hard of hearing, uses white board for communication. Pt.has hx. of CP left arm is contracted. Pt. able to move right arm but with difficulty. Pt. has purewick in place. Pt. getting IV antibiotics Pt. slept well this shift. Pt. has difficulty using call light , checked frequently and assisted as needed. Pt. able to help some with turning and changing positions. Personal items and call li in reach. Bed in low and locked position. safety measures in place.
[2025-07-26 07:36] VITALS: BP 127/86; PULSE 81; RESP 16; TEMP 37.7; O2SAT 95
[2025-07-26 07:50] LABS: Hematocrit 28.8 % (42.0-52.0); Hemoglobin 9.0 g/dL (14.1-18.0); Immature Granulocytes % 0.3 %; Mean Corpuscular HGB Conc 31.3 g/dL (31.8-35.4); Mean Corpuscular Hemoglobin 27.4 pg (27.0-31.2); Mean Corpuscular Volume 87.5 fl (80-94); Nucleated Red Blood Cells % 0 %; Platelet Count 246 K/mm3 (142-424); Red Blood Count 3.29 M/mm3 (4.60-6.20); Red Cell Distribution Width-SD 57.9 fL; White Blood Count 7.3 K/mm3 (4.8-10.8)
[2025-07-26] MEDS: ROPINIROLE 1MG TABLET 2 MG PO (08:11)
[2025-07-26] MEDS: ACETAMINOPHEN 325MG TAB 650 MG PO (08:12)
[2025-07-26 08:44] LABS: Alanine Aminotransferase 13 U/L (12-78); Albumin Level 2.9 g/dl (3.5-5.0); Albumin/Globulin Ratio 0.8 (1.1-1.8); Alkaline Phosphatase 100 U/L (38-126); Anion Gap 8.7 mEq/L (5-15); Aspartate Amino Transferase 25 U/L (17-59); Bilirubin,Total 0.5 mg/dl (0.2-1.3); Blood Urea Nitrogen 13 mg/dl (9-20); Calcium 8.2 mg/dl (8.4-10.2); Carbon Dioxide 22 mmol/L (22.0-30.0); Chloride 107 mmol/L (98-107); Creatinine Clearance Estimated 43 mL/min (50-200); Creatinine,Serum 1.20 mg/dl (0.66-1.25); Estimated Glomerular Filt Rate 59 ml/min (>60); GFR (African American) 72 ML/MIN (>60); Globulin 3.6 g/dL (1.3-3.2); Glucose 73 mg/dl (74-100); Potassium 3.7 mmoL/L (3.5-5.1); Sodium 134 mmol/L (136-145); Total Protein,Serum 6.5 g/dl (6.3-8.2)
--- NOTE | 2025-07-26 09:50 | HMH.PHAAMS2 ---
- Antimicrobial Stewardship Review culture & sensitivity review Stewardship interventions: culture & sensitivity review (ON ZOSYN, URINE CX PSEUDOMONAS SENSITIVE TO ABX. )
--- NOTE | 2025-07-26 11:29 | EXP.DC.SUM ---
General Admission date:: 07/22/25 Discharge date: 07/26/25 HPI HPI HPI: 75-year-old male patient presents to ER from home where he lives with his . Reportedly had altered mental status. He has history of cerebral palsy and his does care for him at home. Also history of dementia as well as Parkinson's. ER reports no focal deficits and he was alert and oriented there he is very hard of hearing and has difficulty answering because of that. He was found to have a bladder infection with urinalysis showing 2+ protein, 3+ blood and 3+ leukocyte esterase with 50-100 white cells. Has history of incontinence as well as multiple bladder infections. We have no cultures on record here. He was given Zosyn and vancomycin in the ER as well as some IV fluids. Hospital Course Hospital Course Hospital Course: Patient was brought to the ER via EMS with altered mental status. Was found to have a UTI with history of recurrent UTIs. After discussion with the ER physician agreed to admit for IV antibiotics and further treatment. Meeting sepsis criteria on admission with fever of 104.7, tachycardic above 100, source of infection with UTI. Continue broad-spectrum antibiotics. Has shown good response to broad-spectrum antibiotics. Urine positive for Pseudomonas. Sepsis resolved. Worked with therapy, needs placement for rehab and potentially long-term care. Has been graciously excepted by [facility] for further management. Stable discharge today. Problems addressed as follows: Sepsis: Present on admission Urinary tract infection Rhinoviral infection - Patient presented meeting sepsis criteria with source of infection in his urine, Tachycardic consistently above 100, fever to 104.7. Blood cultures remain negative. Urine cultures positive for Pseudomonas sensitive to ciprofloxacin, and Zosyn. Treated with Zosyn during admission. Completed 4 full days of IV therapy. Will transition to ciprofloxacin 500 mg twice daily at discharge to complete 7-day total course. White count normalized and remained normal on day of discharge. Kidney function stable With creatinine 1.2, BUN 13. Already p.o. intake. Working with therapy. 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 In regard to his rhinoviral infection, he has remained stable on room air throughout duration of admission. Anticipate viral infection to resolve without incident. -Continue Tylenol as needed 650 mg every 6 hours for fever pain A1c normal 4.6. Not diagnostic for diabetes. Will remove diabetes from patient's chart Spastic cerebral palsy Cachexia: - complicates all aspects of his care, Resume ropinirole 2 mg as needed twice daily; recommend dietary eval on arrival to nursing facility. Continue supplementation with meals Total time spent on discharge 35 minutes in counseling, documentation, chart review, and direct care with patient. Exam Data for Last 24 hours Vital signs and Labs for Last 24 Hours: Temp Pulse Resp BP Pulse Ox O2 Del Method 99.9 F H 81 16 127/86 95 Room Air 07/26/25 07:36 07/26/25 07:36 07/26/25 07:36 07/26/25 07:36 07/26/25 07:36 07/26/25 09:00 Laboratory Results - last 24 hr 07/26/25 06:58: WBC 7.3, RBC 3.29 L, Hgb 9.0 L, Hct 28.8 L, MCV 87.5, MCH 27.4, MCHC 31.3 L, RDW 17.9 H, Plt Count 246, MPV 9.1, Neut % (Auto) 70.3, Lymph % (Auto) 13.3, [place] % (Auto) 11.6 H, Eos % (Auto) 3.8, Baso % (Auto) 0.7, Neut # (Auto) 5.2, Lymph # (Auto) 1.0, Ellsworth # (Auto) 0.9, Eos # (Auto) 0.3, Baso # (Auto) 0.1, Sodium 134 L, Potassium 3.7, Chloride 107, Carbon Dioxide 22, Anion Gap 8.7, BUN 13, Creatinine 1.20, Estimated Creat Clear 43, Estimated GFR 59, Est GFR ( Amer) 72, Glucose 73 L, Calcium 8.2 L, Total Bilirubin 0.5, AST 25, ALT 13, Alkaline Phosphatase 100, Total Protein 6.5, Albumin 2.9 L, Globulin 3.6 H, Albumin/Globulin Ratio 0.8 L I & O for Last 24 hours: Intake & Output 07/23/25 07/24/25 07/25/25 07/26/25 23:59 23:59 23:59 23:59 Intake Total 3627 / 3867 2430 / 2430 1360 / 1480 220 / 220 Output Total 0 / 0 0 / 0 1850 / 1850 600 / 600 Balance 3627 / 3867 2430 / 2430 -490 / -370 -380 / -380 Weight 58.332 kg 62.188 kg 58.513 kg 56.019 kg Microbiology Reports for the Last 24 Hours: Microbiology 07/22/25 21:00 Urine,Catheterized Urine Culture - Final Pseudomonas aeruginosa Constitutional Constitutional: no acute distress, cachectic, chronically ill appearing and cooperative *Routine HEENT Exam Head: Present normocephalic Eye: Present EOMI and PERRL ENT: Present mucous membranes moist *Routine Neck Exam Neck: Present supple; Absent lymphadenopathy *Routine Respiratory Exam Respiratory: Present CTA bilaterally; Absent rhonchi, wheezes or crackles *Routine Cardiovascular Exam Cardiovascular: Present RRR *Routine Abdominal Exam Abdominal: Present soft and normoactive bowel sounds; Absent tenderness *Routine Rectal Exam Patient deferred: visual exam *Routine Exam Patient deferred: penile exam *Routine Extremities Exam Extremities: Absent cyanosis, clubbing or edema Comments: Thin extremities *Routine Skin Exam Skin: Present intact and warm; Absent rash *Routine Neurological Exam Neurological: Present alert, oriented X3, moving all extremities and vision grossly intact; Absent hearing grossly intact Comments: Poor movement in lower extremities due to cerebral palsy, with mild contracture. Very hard of hearing Results Data Completed and Pending Labs on day of discharge: Labs from last 24 hours 07/26/25 06:58 WBC 7.3 RBC 3.29 L Hgb 9.0 L Hct 28.8 L MCV 87.5 MCH 27.4 MCHC 31.3 L RDW 17.9 H Plt Count 246 MPV 9.1 Neut % (Auto) 70.3 Lymph % (Auto) 13.3 Ellsworth % (Auto) 11.6 H Eos % (Auto) 3.8 Baso % (Auto) 0.7 Neut # (Auto) 5.2 Lymph # (Auto) 1.0 Ellsworth # (Auto) 0.9 Eos # (Auto) 0.3 Baso # (Auto) 0.1 Sodium 134 L Potassium 3.7 Chloride 107 Carbon Dioxide 22 Anion Gap 8.7 BUN 13 Creatinine 1.20 Estimated Creat Clear 43 Estimated GFR 59 Est GFR ( Amer) 72 Glucose 73 L Calcium 8.2 L Total Bilirubin 0.5 AST 25 ALT 13 Alkaline Phosphatase 100 Total Protein 6.5 Albumin 2.9 L Globulin 3.6 H Albumin/Globulin Ratio 0.8 L Preliminary micro results at discharge 07/22/25 21:23 Blood Culture - Preliminary Blood NO GROWTH AFTER 48 HOURS 07/22/25 21:15 Blood Culture - Preliminary Blood NO GROWTH AFTER 48 HOURS DS: Diagnosis Discharge Diagnosis (1) Sepsis: Status: Acute Code(s): A41.9 - Sepsis, unspecified organism Qualifiers: Sepsis acute organ dysfunction status: without acute organ dysfunction Sepsis type: Pseudomonas Qualified Code(s): A41.52 - Sepsis due to Pseudomonas Problem details: Secondary to Pseudomonas UTI (2) UTI (urinary tract infection): Status: Acute Code(s): N39.0 - Urinary tract infection, site not specified Qualifiers: Hematuria presence: without hematuria Urinary tract infection type: acute cystitis Qualified Code(s): N30.00 - Acute cystitis without hematuria Problem details: Gram-negative rods; Pseudomonas, present on admission (3) CKD (chronic kidney disease): Status: Acute Code(s): N18.9 - Chronic kidney disease, unspecified (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 Code(s): G80.1 - Spastic diplegic cerebral palsy (5) Anxiety: Status: Acute Code(s): F41.9 - Anxiety disorder, unspecified (6) Depressed: Status: Acute Code(s): F32.A - Depression, unspecified Qualifiers: Depression Type: unspecified Qualified Code(s): F32.A - Depression, unspecified (7) Type 2 diabetes mellitus: Status: Ruled-out Code(s): E11.9 - Type 2 diabetes mellitus without complications (8) Rhinovirus infection: Status: Acute Code(s): B34.8 - Other viral infections of unspecified site Meds Home Medications and Allergies Home Medications ?Medication ?Instructions ?Recorded ?Confirmed ?Type ropinirole 2 mg tablet 2 mg PO BID 05/12/25 07/23/25 History acetaminophen 325 mg tablet 650 mg (2 x 325 mg) PO Q6HP PRN 07/26/25 Rx Fever Or Mild Pain (1-3) 30 days #120 tabs ciprofloxacin HCl 500 mg tablet 500 mg PO BID #6 tabs 07/26/25 Rx pantoprazole 40 mg tablet,delayed 40 mg PO HS 30 days #30 tabs 07/26/25 Rx release New Prescriptions to Start Prescriptions: Bro Drake ciprofloxacin HCl Bro Torrez pantoprazole Bro Torrez Allergies Allergy/AdvReac Type Severity Reaction Status Date / Time lactose Allergy Intermediate Verified 07/23/25 08:44 gluten Allergy Mild Verified 07/23/25 08:44 Discharge Plan Disposition Patient Disposition: Xfer SNF Condition: Fair Discharge Order Discharge Orders: Discharge Order (Routine); Ordered 07/26/25 Ordered By: Bro Torrez Follow up Plan Follow up with: Chong Lakhani MD [Primary Care Provider, [facility]] - 08/03/25 9:00 am Prescriptions/Medication Reconciliation: New acetaminophen 325 mg Tablet 650 mg PO Q6HP PRN (Reason: Fever Or Mild Pain (1-3)) 30 Days Qty: 120 0RF pantoprazole 40 mg Tablet,Delayed Release (Dr/Ec) 40 mg PO HS 30 Days Qty: 30 0RF ciprofloxacin HCl 500 mg tablet 500 mg PO BID Qty: 6 0RF Rx Instructions: first dose evening of 07/26/25 Continued ropinirole 2 mg tablet 2 mg PO BID Discontinued acetaminophen 500 mg capsule 500 mg PO Q8HP PRN (Reason: Mild Pain (Scale Score 1-4)) Problem Reconciliation Problems Reviewed?: Yes Patient Discharge Instructions ACTIVITY: Continue current activity DIET: continue same diet Patient Instructions: DI for Urinary Tract Infection (UTI), DI for Common Cold, DI for Sepsis in Adults Print Language: Israeli Providers Primary Care Provider: Chong Lakhani Admit Provider: Bro Torrez Attending Provider: Bro Torrez
[2025-07-26 12:00] VITALS: BP 129/81; PULSE 76; RESP 16; TEMP 36.9; O2SAT 95
== END 2025-07-26 13:04 | DRG 872 ==
LOC: ER 23:06 → 2ND 23:15
PROVIDERS: Nurse Practitioner Acute Care; Admitting Provider Internal Medicine Adolescent Medicine; Emergency Provider Student in an Organized Health Care Education/Training Program; PCP Family Medicine; Visit Provider Internal Medicine Adolescent Medicine
DX: A41.52 Sepsis due to Pseudomonas (principal); G80.1 Spastic diplegic cerebral palsy; N30.00 Acute cystitis without hematuria; R64 Cachexia; Z68.1 Body mass index [BMI] 19.9 or less, adult; G20.A1 Parkinson's disease without dyskinesia, without mention of fluctuations; F02.80 Dementia in other diseases classified elsewhere, unspecified severity, without behavioral disturbance, psychotic disturbance, mood disturbance, and anxiety; N18.9 Chronic kidney disease, unspecified; F41.9 Anxiety disorder, unspecified; F32.A Depression, unspecified; B34.8 Other viral infections of unspecified site; Z91.0110 Allergy to milk products, unspecified; Z91.018 Allergy to other foods; Z79.899 Other long term (current) drug therapy
CPT/HCPCS: 0223U; 36415; 71045; 80053; 81001; 82550; 83036; 83605; 83690; 83735; 84100; 84484; 85025; 85610; 85651; 85730; 86140; 86803; 87040; 87086; 87088; 87186; 87389; 97162; 97166; 97530; 99285; J0131; J1650; J2543; J3373; J3375; J7050; J7120